=== PATIENT | male | born 1945 | race Caucasian/White ===

== ENCOUNTER 2018-04-30 11:24 | Observation (INO) ==
--- NOTE | 2018-04-30 11:59 | ED ---
HPI General Chief Complaint: Syncope Stated Complaint: Medical Time Seen by Provider: 04/30/18 11:46 Source: EMS Mode of arrival: EMS Limitations: altered mental status History of Present Illness HPI narrative: Patient is a 72-year-old male presenting to the emergency department for evaluation of altered mental status and a syncopal episode. Patient was at [facility] with his caregiver, he was sitting in a chair when he slumped over and was reportedly unresponsive for 3-5 minutes. There was no head injury or fall. EMS was activated and on scene patient aroused spontaneously, he was initially hypotensive for fire rescue but has been normotensive for EMS. Patient has no complaints, H&P is limited due to patient's mentation. He has a history of Alzheimer's dementia. When asked any questions patient responds with "it is none of your [employer] business". Patient has been making homicidal statements. 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 Past medical history is significant for hypertension, BPH. Patient is not on any medications for the Alzheimer's. Patient currently lives alone, but has friends who cook for him and check on him several times a day. MD complaint: loss of consciousness Onset (ago): minute(s) Duration of episode: 3 -: minutes(s) Witnessed: yes - by other (Daughter) Context: at rest Injuries sustained associated with event: none Current symptoms: back to baseline Treatments prior to arrival: none Related Data Home Medications Medication Instructions Recorded Confirmed acetaminophen-codeine 1 tab PO Q6H PRN 04/30/18 04/30/18 [Tylenol-Codeine #3] atenolol 25 mg PO DAILY 04/30/18 05/01/18 ferrous sulfate 04/30/18 gabapentin 100 mg PO DAILY 04/30/18 05/01/18 amlodipine [Norvasc] 2.5 mg PO DAILY 05/01/18 05/01/18 trazodone 05/01/18 05/01/18 Previous Rx's Medication Instructions Recorded aspirin 81 mg PO DAILY #30 tab 05/01/18 atorvastatin 20 mg PO DAILY #30 tab 05/01/18 Allergies Allergy/AdvReac Type Severity Reaction Status Date / Time No Known Allergies Allergy Uncoded 07/01/12 15:36 Review of Systems ROS Unobtainable ROS Unobtainable: unobtainable due to mental condition PMFSH Medical History Medical History Dementia (Acute) Enlarged prostate (Acute) HTN (hypertension) (Acute) Social History Social History Substance History: Unable to Obtain Second Hand Smoke Exposure: No Smoking Status: Never smoker How Often Do You Have a Drink Containing Alcohol: Never Hx Recent Travel: No Recent Travel in [facility] within the Last 8 Weeks: No Recent Out of Country Travel within the Last 8 Weeks: No Immunization History Tetanus Immunization: Unable to Assess Hx Influenza Vaccine This Season: Unable to Assess Exam Narrative Exam Narrative: GENERAL: Well-developed, well-nourished, alert elderly male. Presenting in no acute distress. SKIN: Focused skin assessment warm/dry. HEAD: Atraumatic. Normocephalic. EYES: Pupils equal and round. No scleral icterus. No injection or drainage. ENT: No nasal bleeding or discharge. Mucous membranes pink and moist. NECK: Trachea midline. No JVD. CARDIOVASCULAR: Regular rate and rhythm. No murmur appreciated. RESPIRATORY: No accessory muscle use. Clear to auscultation. Breath sounds equal bilaterally. GASTROINTESTINAL: Abdomen soft, non-tender, nondistended. Hepatic and splenic margins not palpable. MUSCULOSKELETAL: No obvious deformities. No clubbing. No cyanosis. No edema. NEUROLOGICAL: Awake and alert. No obvious cranial nerve deficits. Motor grossly within normal limits. Normal speech. Psych Appearance: grossly normal Mental Status: other Speech and Movement: speech and movement normal Mood: irritable mood Affect: irritable affect Attitude: belligerent Thought Process: illogical Thought Content: homicidality Judgment: poor Course Initial Documented Vital Signs Temperature 97.8 F 04/30/18 11:36 Pulse Rate 75 04/30/18 11:36 Respiratory Rate 18 04/30/18 11:36 Blood Pressure 158/75 H 04/30/18 11:36 Pulse Oximetry 99 04/30/18 11:36 Last Documented Vital Signs Temperature 97.6 F 05/01/18 08:00 Pulse Rate 66 05/01/18 12:00 Respiratory Rate 18 05/01/18 14:26 Blood Pressure 173/84 H 05/01/18 12:00 Pulse Oximetry 98 05/01/18 12:00 Medical Decision Making GERARDO Attestation GERARDO supervised visit: Yes Attestation: I, Dr. Cardoza, have reviewed the advance practice practitioner's documentation and am in agreement, met with the patient face to face, made the diagnosis, and the medical decision making was done by me. *My assessment and Findings: Patient is a 72-year-old male who presents to the emergency department after he was unresponsive in latter day. He denies any prodromal symptoms. Vital signs are stable here by EMS reports he was hypotensive on their arrival on scene. EKG shows normal sinus rhythm. Labs are relatively unremarkable. Patient lives alone and thus does not have reliable care in case an episode were to happen again. He has been admitted to Dr. Alas, hospitalist on-call, for further evaluation and management of his syncope versus seizure. MDM Narrative Medical decision making narrative: Patient is a well-appearing 72-year-old male presenting for evaluation after a witnessed syncopal episode. Patient also appears to be having an exacerbation of his Alzheimer's dementia. Labs and imaging ordered and pending. Patient is extremely irritable, 1 mg of Ativan ordered. Patient's vital signs are stable. Daughter is at bedside. Medical records reviewed, patient has not been to the emergency department since 2011. Labs reviewed, no acute findings. CT scan the brain shows no acute abnormality. Urinalysis is unremarkable. Chest x-ray shows no acute findings. Patient has been resting comfortably. Discussed findings of patient's presentation with my attending physician. Patient will be admitted under observation for syncopal episode as he was hypotensive when initially evaluated by fire rescue. Discussed with Dr. Navarro who accepted admit. Medical Screen Exam Complete: Yes Emergency Medical Condition: Yes Differential Diagnosis Differential Diagnosis: UTI versus metabolic abnormality versus worsening dementia versus CVA versus TIA versus other Medical Records Medical records reviewed: Yes I reviewed the patient's medical records. Lab Data Lab results reviewed: Yes I reviewed the patient's lab results. Result diagrams: 04/30/18 13:12 04/30/18 11:50 Lab Results 04/30/18 04/30/18 04/30/18 Range/Units 11:50 11:50 12:29 WBC (4.0-11.0) th/mm3 RBC (4.50-5.90) mil/mm3 Hgb (13.0-17.0) gm/dL Hct (39.0-51.0) % MCV (80.0-100.0) fL MCH (27.0-34.0) pg MCHC (32.0-36.0) % RDW (11.6-17.2) % Plt Count (150-450) th/mm3 MPV (7.0-11.0) fL Neut % (Auto) (16.0-70.0) % Lymph % (Auto) (9.0-44.0) % [place] % (Auto) (0.0-8.0) % Eos % (Auto) (0.0-4.0) % Baso % (Auto) (0.0-2.0) % Neut # (Auto) (1.8-7.7) th/mm3 Lymph # (Auto) (1.0-4.8) th/mm3 [place] # (Auto) (0.0-0.9) th/mm3 Eos # (Auto) (0.0-0.4) th/mm3 Baso # (Auto) (0.0-0.2) th/mm3 WBC Differential Differential Comment PT (9.8-11.6) sec INR Ratio APTT (24.3-30.1) sec Sodium 136 (136-145) meq/L Potassium 4.4 (3.5-5.1) meq/L Chloride 102 (98-107) meq/L Carbon Dioxide 24.5 (21.0-32.0) meq/L Anion Gap 10 (5-15) meq/L BUN 18 (7-18) mg/dL Creatinine 1.36 H (0.60-1.30) mg/dL Estimated GFR 51 L (>89) mL/min Random Glucose 157 H (74-106) mg/dL Hemoglobin A1c (4.3-6.0) % Calcium 8.5 (8.5-10.1) mg/dL Total Bilirubin 0.7 (0.2-1.0) mg/dL AST 21 (15-37) U/L ALT 18 (12-78) U/L Alkaline Phosphatase 49 (45-117) U/L Total Creatine Kinase 129 (39-308) U/L Troponin I Less than 0.02 L (0.02-0.05) ng/mL Total Protein 6.8 (6.4-8.2) g/dL Albumin 3.4 (3.4-5.0) g/dL TSH 1.250 (0.358-3.740) uIU/mL Urine Color (Yellw/Straw) Urine Clarity (Clear) Urine pH (5.0-8.5) Ur Specific [place] (1.002-1.035) Urine Protein (Neg-Trace) mg/dL Urine Glucose (UA) (Negative) mg/dL Urine Ketones (Negative) mg/dL Urine Occult Blood (Negative) Urine Nitrate (Negative) Urine Bilirubin (Negative) Urine Urobilinogen (Less than 2) mg/dL Ur Leukocyte Esterase (Negative) Urine RBC (0-3) /hpf Urine WBC (0-5) /hpf Ur Squamous Epith Cells (0-5) /hpf Ur Transition Epith Cell (None) /hpf Hyaline Casts (0-3) /lpf Urine Mucus (Occasional) /lpf Micro UA Comment Ur Microscopic Review Urine Culture Comments Urine Opiates Screen Pos H (Neg) Ur Barbiturates Screen Neg (Neg) Ur Amphetamines Screen Neg (Neg) U Benzodiazepines Scrn Pos H (Neg) Urine Cocaine Screen Neg (Neg) U Cannabinoids Screen Neg (Neg) 04/30/18 04/30/18 04/30/18 Range/Units 12:29 13:12 13:12 WBC 9.1 (4.0-11.0) th/mm3 RBC 3.88 L (4.50-5.90) mil/mm3 Hgb 12.3 L (13.0-17.0) gm/dL Hct 37.4 L (39.0-51.0) % MCV 96.4 (80.0-100.0) fL MCH 31.7 (27.0-34.0) pg MCHC 32.9 (32.0-36.0) % RDW 12.9 (11.6-17.2) % Plt Count 221 (150-450) th/mm3 MPV 8.1 (7.0-11.0) fL Neut % (Auto) 90.8 H (16.0-70.0) % Lymph % (Auto) 3.8 L (9.0-44.0) % [place] % (Auto) 5.1 (0.0-8.0) % Eos % (Auto) 0.1 (0.0-4.0) % Baso % (Auto) 0.2 (0.0-2.0) % Neut # (Auto) 8.2 H (1.8-7.7) th/mm3 Lymph # (Auto) 0.3 L (1.0-4.8) th/mm3 [place] # (Auto) 0.5 (0.0-0.9) th/mm3 Eos # (Auto) 0.0 (0.0-0.4) th/mm3 Baso # (Auto) 0.0 (0.0-0.2) th/mm3 WBC Differential . Differential Comment Auto diff final PT 10.9 (9.8-11.6) sec INR 1.1 Ratio APTT 25.4 (24.3-30.1) sec Sodium (136-145) meq/L Potassium (3.5-5.1) meq/L Chloride (98-107) meq/L Carbon Dioxide (21.0-32.0) meq/L Anion Gap (5-15) meq/L BUN (7-18) mg/dL Creatinine (0.60-1.30) mg/dL Estimated GFR (>89) mL/min Random Glucose (74-106) mg/dL Hemoglobin A1c (4.3-6.0) % Calcium (8.5-10.1) mg/dL Total Bilirubin (0.2-1.0) mg/dL AST (15-37) U/L ALT (12-78) U/L Alkaline Phosphatase (45-117) U/L Total Creatine Kinase (39-308) U/L Troponin I (0.02-0.05) ng/mL Total Protein (6.4-8.2) g/dL Albumin (3.4-5.0) g/dL TSH (0.358-3.740) uIU/mL Urine Color Yellow (Yellw/Straw) Urine Clarity Clear (Clear) Urine pH 6.0 (5.0-8.5) Ur Specific [place] 1.009 (1.002-1.035) Urine Protein Negative (Neg-Trace) mg/dL Urine Glucose (UA) Negative (Negative) mg/dL Urine Ketones Negative (Negative) mg/dL Urine Occult Blood Negative (Negative) Urine Nitrate Negative (Negative) Urine Bilirubin Negative (Negative) Urine Urobilinogen Less than 2 (Less than 2) mg/dL Ur Leukocyte Esterase Negative (Negative) Urine RBC Less than 1 (0-3) /hpf Urine WBC 1 (0-5) /hpf Ur Squamous Epith Cells <1 (0-5) /hpf Ur Transition Epith Cell <1 (None) /hpf Hyaline Casts 3 (0-3) /lpf Urine Mucus Few H (Occasional) /lpf Micro UA Comment Cath-culture not ind Ur Microscopic Review Not Reportable Urine Culture Comments Cath-cult not ind Urine Opiates Screen (Neg) Ur Barbiturates Screen (Neg) Ur Amphetamines Screen (Neg) U Benzodiazepines Scrn (Neg) Urine Cocaine Screen (Neg) U Cannabinoids Screen (Neg) 04/30/18 Range/Units 13:12 WBC (4.0-11.0) th/mm3 RBC (4.50-5.90) mil/mm3 Hgb (13.0-17.0) gm/dL Hct (39.0-51.0) % MCV (80.0-100.0) fL MCH (27.0-34.0) pg MCHC (32.0-36.0) % RDW (11.6-17.2) % Plt Count (150-450) th/mm3 MPV (7.0-11.0) fL Neut % (Auto) (16.0-70.0) % Lymph % (Auto) (9.0-44.0) % [place] % (Auto) (0.0-8.0) % Eos % (Auto) (0.0-4.0) % Baso % (Auto) (0.0-2.0) % Neut # (Auto) (1.8-7.7) th/mm3 Lymph # (Auto) (1.0-4.8) th/mm3 [place] # (Auto) (0.0-0.9) th/mm3 Eos # (Auto) (0.0-0.4) th/mm3 Baso # (Auto) (0.0-0.2) th/mm3 WBC Differential Differential Comment PT (9.8-11.6) sec INR Ratio APTT (24.3-30.1) sec Sodium (136-145) meq/L Potassium (3.5-5.1) meq/L Chloride (98-107) meq/L Carbon Dioxide (21.0-32.0) meq/L Anion Gap (5-15) meq/L BUN (7-18) mg/dL Creatinine (0.60-1.30) mg/dL Estimated GFR (>89) mL/min Random Glucose (74-106) mg/dL Hemoglobin A1c 5.2 (4.3-6.0) % Calcium (8.5-10.1) mg/dL Total Bilirubin (0.2-1.0) mg/dL AST (15-37) U/L ALT (12-78) U/L Alkaline Phosphatase (45-117) U/L Total Creatine Kinase (39-308) U/L Troponin I (0.02-0.05) ng/mL Total Protein (6.4-8.2) g/dL Albumin (3.4-5.0) g/dL TSH (0.358-3.740) uIU/mL Urine Color (Yellw/Straw) Urine Clarity (Clear) Urine pH (5.0-8.5) Ur Specific [place] (1.002-1.035) Urine Protein (Neg-Trace) mg/dL Urine Glucose (UA) (Negative) mg/dL Urine Ketones (Negative) mg/dL Urine Occult Blood (Negative) Urine Nitrate (Negative) Urine Bilirubin (Negative) Urine Urobilinogen (Less than 2) mg/dL Ur Leukocyte Esterase (Negative) Urine RBC (0-3) /hpf Urine WBC (0-5) /hpf Ur Squamous Epith Cells (0-5) /hpf Ur Transition Epith Cell (None) /hpf Hyaline Casts (0-3) /lpf Urine Mucus (Occasional) /lpf Micro UA Comment Ur Microscopic Review Urine Culture Comments Urine Opiates Screen (Neg) Ur Barbiturates Screen (Neg) Ur Amphetamines Screen (Neg) U Benzodiazepines Scrn (Neg) Urine Cocaine Screen (Neg) U Cannabinoids Screen (Neg) Imaging Data Radiologist's impression: Carotid Doppler Study 04/30/18 00:00 CONCLUSION: 1. Right Internal Carotid Artery: Findings indicate <50% stenosis. Moderate calcified and noncalcified plaque is identified in the bifurcation. 2. Left Internal Carotid Artery: No significant stenosis; mild atherosclerotic plaque is visualized. 3. Antegrade flow in both vertebral arteries. Chest X-Ray 04/30/18 11:46 CONCLUSION: 1. No significant subdiaphragmatic free air. 2. No acute abnormality or significant interval change. Head CT 04/30/18 11:46 CONCLUSION: 1. Remote right basal ganglial lacunar infarct. 2. Senescent changes with mild to moderate periventricular ischemic white matter demyelination. 3. No acute intracranial abnormality. . Discharge Plan Discharge Disposition Patient Disposition: 30 Still Patient Discharge Condition Condition: Stable Discharge Order Discharge Orders: Discharge Order (Routine); Ordered 05/01/18 Ordered By: Lynne Sanders Discharge Details Anticipated Discharge Date: 05/01/18 Diagnosis: Syncope, Altered mental status Physicians Team ED Provider: Enid Cardoza ED Midlevel Provider: Xena Miguel Primary Care Provider: [facility],Physician 's Attending Provider: Mikki Buitrago Other Providers: Silvestre Harris Status ED Status: Left Department Discharge Information Discharge Date/Time: 04/30/18 16:16
[2018-04-30 13:05] LABS: Alanine Aminotransferase 18 U/L (12-78); Albumin 3.4 g/dL (3.4-5.0); Alkaline Phosphatase 49 U/L (45-117); Anion Gap 10 meq/L (5-15); Aspartate Aminotransferase 21 U/L (15-37); Blood Urea Nitrogen 18 mg/dL (7-18); Calcium 8.5 mg/dL (8.5-10.1); Carbon Dioxide 24.5 meq/L (21.0-32.0); Chloride 102 meq/L (98-107); Creatine Kinase 129 U/L (39-308); Glomerular Filtration Rate 51 mL/min (>89); Glucose,Random 157 mg/dL (74-106); Potassium 4.4 meq/L (3.5-5.1); Sodium 136 meq/L (136-145); Total Protein 6.8 g/dL (6.4-8.2)
--- NOTE | 2018-04-30 13:05 | CT ---
EXAM DATE: 04/30/2018 11:52 AM EDT AGE/SEX: 72 years / Male INDICATIONS: Syncope and confusion. CLINICAL DATA: This is the patient's initial encounter. Patient reports that signs and symptoms have been present for 1 day and indicates a pain score of 0/10. MEDICAL/SURGICAL HISTORY: Hypertension. Dementia. None. RADIATION DOSE: 56.35 CTDI (mGy) [place] [facility] [place]. . TECHNIQUE: CT of the head without contrast. Using automated exposure control and adjustment of the mA and/or kV according to patient size, radiation dose was kept as low as reasonably achievable to ob tain optimal diagnostic quality images. DICOM format image data is available electronically for revi ew and comparison. FINDINGS: Cerebrum: Small hypodensity in the right basal ganglia likely reflecting old lacunar infarct. Modera te diffuse cerebral atrophy. [id number] periventricular white matter hypodensities. The ventric les are normal for degree of atrophy. No evidence of midline shift, mass lesion, hemorrhage or acute infarction. No extraaxial fluid collections are seen. Posterior Fossa: The cerebellum and brainstem are intact. The 4th ventricle is midline. The cerebe llopontine angle is unremarkable. Extracranial: The visualized portion of the orbits is intact. Skull: The calvaria is intact. No evidence of skull fracture. CONCLUSION: 1. Remote right basal ganglial lacunar infarct. 2. Senescent changes with mild to moderate periventricular ischemic white matter demyelination. 3. No acute intracranial abnormality. . Electronically signed by: Ramone Coelho MD 04/30/2018 1:03 PM EDT
--- NOTE | 2018-04-30 13:06 | XR ---
EXAM DATE: 04/30/2018 11:46 AM EDT AGE/SEX: 72 years / Male INDICATIONS: Free air. CLINICAL DATA: This is the patient's initial encounter. Patient reports that signs and symptoms have been present for 1 day and indicates a pain score of Nonresponsive. MEDICAL/SURGICAL HISTORY: . unknown, pt seems confused . unknown COMPARISON: [facility] – [place], 07/01/2012. . FINDINGS: Stable mild diffuse interstitial prominence. The cardiomediastinal contours are unremarkable. [place] structures are intact. No significant subdiaphragmatic free air. CONCLUSION: 1. No significant subdiaphragmatic free air. 2. No acute abnormality or significant interval change. Electronically signed by: Ramone Coelho MD 04/30/2018 1:04 PM EDT
[2018-04-30 13:28] LABS: Bilirubin,Urine Negative (Negative); Clarity,Urine Clear (Clear); Color,Urine Yellow (Yellw/Straw); Glucose,Urine (UA) Negative (Negative); Hyaline Casts,Urine 3 /lpf (0-3); Leukocyte Esterase,Urine Negative (Negative); Mucus,Urine Few /lpf (Occasional); Nitrite,Urine Negative (Negative); Specific Gravity,Urine 1.009 (1.002-1.035); Squamous Epithelial Cell,Urine <1 /hpf (0-5); Transitional Epi Cells,Urine <1 /hpf
[2018-04-30 13:31] LABS: Amphetamine Screen,Urine Neg (Neg); Barbiturate Screen,Urine Neg (Neg); Cannabinoid Screen,Urine Neg (Neg); Cocaine Screen,Urine Neg (Neg)
[2018-04-30 13:36] LABS: Opiate Screen,Urine Pos (Neg)
[2018-04-30 13:39] LABS: Baso % (Auto) 0.2 % (0.0-2.0); Eos % (Auto) 0.1 % (0.0-4.0); Hematocrit 37.4 % (39.0-51.0); Hemoglobin 12.3 gm/dL (13.0-17.0); Lymph # (Auto) 0.3 th/mm3 (1.0-4.8); Lymph % (Auto) 3.8 % (9.0-44.0); Mean Corpuscular HGB Conc 32.9 % (32.0-36.0); Mean Corpuscular Hemoglobin 31.7 pg (27.0-34.0); Mean Corpuscular Volume 96.4 fL (80.0-100.0); Mean Platelet Volume 8.1 fL (7.0-11.0); Mono # (Auto) 0.5 th/mm3 (0.0-0.9); Mono % (Auto) 5.1 % (0.0-8.0); Neut # (Auto) 8.2 th/mm3 (1.8-7.7); Neut % (Auto) 90.8 % (16.0-70.0); Platelet Count 221 th/mm3 (150-450); Red Blood Count 3.88 mil/mm3 (4.50-5.90); Red Cell Distribution Width 12.9 % (11.6-17.2); White Blood Count 9.1 th/mm3 (4.0-11.0)
[2018-04-30 13:48] LABS: Activated Partial Thrombo Time 25.4 sec (24.3-30.1); INR 1.1 Ratio; Prothrombin Time 10.9 sec (9.8-11.6)
[2018-04-30] MEDS ORDERED: Acetaminophen 325 MG Tablet PO PRN (14:44)
[2018-04-30] MEDS ORDERED: Bisacodyl 10 MG Supp RECTAL PRN (14:44)
[2018-04-30] MEDS ORDERED: Sodium Chloride 0.9% 2 ML Flush PRN IV.FLUSH (14:46)
[2018-04-30] MEDS ORDERED: Acetaminophen/Codeine 300/30 MG Tablet PO PRN ×2 (14:47→18:53)
--- NOTE | 2018-04-30 16:17 | US ---
EXAM DATE: 04/30/2018 12:00 AM EDT AGE/SEX: 72 years / Male INDICATIONS: Syncope. CLINICAL DATA: This is the patient's initial encounter. Patient reports that signs and symptoms have been present for 1 day and indicates a pain score of 0/10. MEDICAL/SURGICAL HISTORY: Dementia. Hypertension. Enlarges prostate. None. COMPARISON: No prior exams available for comparison. VELOCITY PARAMETERS: ICA/CCA Ratio: Right 1.3 , Left 0.7 ICA: Right 59 cm/sec, Left 58 cm/sec CCA: Right 45 cm/sec, Left 82 cm/sec ECA: Right 103 cm/sec, Left 113 cm/sec Vertebral: Right 31 cm/sec antegrade, Left 34 cm/sec antegrade FINDINGS: Right Carotid: Moderate calcified and noncalcified arteriosclerotic plaque is visualized.The wavefor ms are within normal limits. Left Carotid: Mild plaque is visualized. The waveforms are within normal limits. Other: None. CONCLUSION: 1. Right Internal Carotid Artery: Findings indicate <50% stenosis. Moderate calcified and noncalcifi ed plaque is identified in the bifurcation. 2. Left Internal Carotid Artery: No significant stenosis; mild atherosclerotic plaque is visualized. 3. Antegrade flow in both vertebral arteries. Electronically signed by: Jose E Ventura MD 04/30/2018 4:16 PM EDT
--- NOTE | 2018-04-30 16:44 | P.HPIM ---
History of Present Illness Service: [facility] Primary Care Physician: [facility] Chief Complaint: SYNCOPE-ALTERED MENTAL STATUS History of Present Illness: Patient is a 72-year-old male who presented to the emergency department today for evaluation of altered mental status and a syncopal episode. Patient was at the [facility] with his caregiver, he was sitting in a chair when he suddenly slumped over was reportedly unresponsive for about 3-5 minutes. There was no head injury or fall. EMS was activated on the scene patient arouse spontaneously, he was noted to be hypotensive initially when fire rescue first arrived.. But then became normal tensive for EMS. Patient denies any complaints. He has a history of Alzheimer's dementia. When asked questions patient responds "it is none of your [employer] business" patient has been making homicidal statements. 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 Past medical history significant for hypertension, and BPH. Patient is currently not on any Alzheimer's occasions. Currently lives alone. Has friends to cook for him and check on him several times a day. Patient was noted to have this questionable loss of consciousness. And is now back to baseline Patient will be placed in observation will admit him for altered mental status and syncope and consult psychiatry Review of Systems All other systems reviewed negative except as stated in HPI, unobtainable due to mental condition, unobtainable due to mental status PMFSH - History History Provided By: Patient - Medical History Medical History: Medical History (Last Updated 04/30/18 @ 16:39 by Patricio Navarro DO) Anxiety Back pain Dementia Enlarged prostate HTN (hypertension) Hyperlipidemia Peripheral vascular disease Spinal injury Surgical history unknown - Family History Family History: Family History (Last Reviewed 04/30/18 @ 16:38 by Patricio Navarro DO) Other Family history unobtainable due to patient's condition - Social History I have reviewed the patient's Social History: Yes - Tobacco History Second Hand Smoke Exposure: No Tobacco Use In Past 30 Days: No Smoking Status: Refused to answer - Alcohol History How Often Do You Have a Drink Containing Alcohol: Unable to Obtain - Substance Use History Substance History: Unable to Obtain - Travel History History of Recent Travel: No Recent Travel in the [facility] Within the Last 8 Weeks: No Recent Travel Out of the Country Within the Last 8 Weeks: No - Immunization History Tetanus Immunization: Unable to Assess Hx Influenza Vaccine This Season: Unable to Assess Medications and Allergies Active Medications: Active Medications Acetaminophen (Tylenol) 650 mg PO Q4H PRN PRN Reason: Temp > 100.4 Acetaminophen/Codeine Phosphate (Tylenol W/Cod #3) 1 tab PO Q6H PRN PRN Reason: Acid Reflux Al Hydroxide/Mg Hydroxide (Milk Of Magnesia Liq) 30 ml PO Q12H PRN PRN Reason: Mild Constipation Amlodipine Besylate (Norvasc) 2.5 mg PO DAILY NICKY Atenolol (Tenormin) 50 mg PO DAILY NICKY Bisacodyl (Dulcolax Supp) 10 mg RECTAL DAILY PRN PRN Reason: SEVERE CONSITIPATION Enoxaparin Sodium (Lovenox Inj) 40 mg SQ Q24H NICKY Ferrous Sulfate (Ferosul) 325 mg PO DAILY NICKY Gabapentin (Neurontin) 100 mg PO DAILY NICKY Sodium Chloride (Ns Inj) 1,000 mls @ 100 mls/hr IV.CONT .Q10H NICKY Lactulose (Lactulose Liq) 30 ml PO DAILY PRN PRN Reason: SEVERE CONSITIPATION Ondansetron HCl (Zofran Inj) 4 mg IV.PUSH Q6H PRN PRN Reason: NAUSEA OR VOMITING Pantoprazole Sodium (Protonix) 40 mg PO DAILY NICKY Senna/Docusate Sodium (Dilia-Colace) 1 tab PO BID NICKY Sennosides (Senokot) 17.2 mg PO Q12H PRN PRN Reason: Moderate Constipation Sodium Chloride (Ns Flush) 2 ml IV.FLUSH BID NICKY Sodium Chloride (Ns Flush) 2 ml IV.FLUSH PRN PRN PRN Reason: FLUSH AFTER USING IV ACCESS Allergies Allergy/AdvReac Type Severity Reaction Status Date / Time No Known Allergies Allergy Uncoded 07/01/12 15:36 Home Medications Medication Instructions Recorded Confirmed Type acetaminophen-codeine 1 tab PO Q6H PRN 04/30/18 04/30/18 History [Tylenol-Codeine #3] amlodipine 2.5 mg PO DAILY 04/30/18 04/30/18 History atenolol 50 mg PO DAILY 04/30/18 04/30/18 History ferrous sulfate 04/30/18 History gabapentin 100 mg PO DAILY 04/30/18 04/30/18 History lisinopril 40 mg PO DAILY 04/30/18 04/30/18 History meloxicam 15 mg PO DAILY 04/30/18 04/30/18 History Exam Vital signs: Vital Signs 04/30/18 11:36 Temperature 97.8 F Pulse Rate 75 Respiratory Rate 18 Blood Pressure 158/75 H Pulse Oximetry 99 Intake & Output 04/29/18 04/30/18 04/30/18 18:59 06:59 18:59 Weight 58.967 kg Narrative: GENERAL: Awake and alert knows he is in the hospital and he did not know which hospital he is in. Did not know what city he does not know what year and does not know president is Trump SKIN: Warm and dry. HEAD: Atraumatic. Normocephalic. EYES: Pupils equal and round. No scleral icterus. No injection or drainage. EOMI glasses ENT: No nasal bleeding or discharge. Mucous membranes pink and moist. NECK: Trachea midline. No JVD. Tongue is midline supple CARDIOVASCULAR: Regular rate and rhythm. S1-S2 no S3 or S4 RESPIRATORY: No accessory muscle use. Clear to auscultation. Breath sounds equal bilaterally. GASTROINTESTINAL: Abdomen soft, non-tender, nondistended. Hepatic and splenic margins not palpable. MUSCULOSKELETAL: Extremities without clubbing, cyanosis, or edema. No obvious deformities. NEUROLOGICAL: Awake and alert. No obvious cranial nerve deficits. Motor grossly within normal limits. Five out of 5 muscle strength in the arms and legs. Normal speech. PSYCHIATRIC: INAppropriate mood and affect; insight and judgment ABnormal. Results - Labs CBC & Chem 7: 04/30/18 13:12 04/30/18 11:50 Labs: Short CBC 04/30/18 Range/Units 13:12 WBC 9.1 (4.0-11.0) th/mm3 Hgb 12.3 L (13.0-17.0) gm/dL Hct 37.4 L (39.0-51.0) % Plt Count 221 (150-450) th/mm3 [facility] 04/30/18 11:50 Sodium 136 Potassium 4.4 Chloride 102 Carbon Dioxide 24.5 BUN 18 Creatinine 1.36 H Calcium 8.5 Cardiac Enzymes 04/30/18 Range/Units 11:50 Total Creatine Kinase 129 (39-308) U/L Troponin I Less than 0.02 L (0.02-0.05) ng/mL Liver Function 04/30/18 Range/Units 11:50 Total Bilirubin 0.7 (0.2-1.0) mg/dL AST 21 (15-37) U/L ALT 18 (12-78) U/L Alkaline Phosphatase 49 (45-117) U/L Albumin 3.4 (3.4-5.0) g/dL Urine 04/30/18 Range/Units 12:29 Urine Color Yellow (Yellw/Straw) Urine Clarity Clear (Clear) Urine pH 6.0 (5.0-8.5) Ur Specific [place] 1.009 (1.002-1.035) Urine Protein Negative (Neg-Trace) mg/dL Urine Glucose (UA) Negative (Negative) mg/dL - Imaging Impressions Carotid Doppler Study 04/30/18 00:00 CONCLUSION: 1. Right Internal Carotid Artery: Findings indicate <50% stenosis. Moderate calcified and noncalcified plaque is identified in the bifurcation. 2. Left Internal Carotid Artery: No significant stenosis; mild atherosclerotic plaque is visualized. 3. Antegrade flow in both vertebral arteries. Chest X-Ray 04/30/18 11:46 CONCLUSION: 1. No significant subdiaphragmatic free air. 2. No acute abnormality or significant interval change. Head CT 04/30/18 11:46 CONCLUSION: 1. Remote right basal ganglial lacunar infarct. 2. Senescent changes with mild to moderate periventricular ischemic white matter demyelination. 3. No acute intracranial abnormality. . Caprini VTE Risk Assessment Caprini VTE Risk Assessment: No/Low Risk (score <= 1) Caprini Risk Assessment Model: Point Value = 1 Point Value = 2 Point Value = 3 Point Value = 5 Age 41-60 Minor surgery BMI > 25 kg/m2 Swollen legs Varicose veins or History of unexplained or recurrent spontaneous Oral contraceptives or hormone replacement Sepsis (< 1 month) Serious lung disease, including pneumonia (< 1 month) Abnormal pulmonary function Acute myocardial infarction Congestive heart failure (< 1 month) History of inflammatory bowel disease Medical patient at bed rest Age 61-74 Arthroscopic surgery Major open surgery (> 45 min) Laparoscopic surgery (> 45 min) Malignancy Confined to bed (> 72 hours) Immobilizing plaster cast Central venous access Age >= 75 History of VTE Family history of VTE Factor V Leiden Prothrombin [id number] Lupus anticoagulant Anticardiolipin antibodies Elevated serum homocysteine Heparin-induced thrombocytopenia Other congenital or acquired thrombophilia Stroke (< 1 month) Elective arthroplasty Hip, pelvis, or leg fracture Acute spinal cord injury (< 1 month) Prophylaxis Regimen: Total Risk Factor Score Risk Level Prophylaxis Regimen 0-1 Low Early ambulation 2 Moderate Order ONE of the following: *Sequential Compression Device (SCD) *Heparin 5000 units SQ BID 3-4 Higher Order ONE of the following medications: *Heparin 5000 units SQ TID *Enoxaparin/Lovenox 40 mg SQ daily (WT < 150 kg, CrCl > 30 mL/min) *Enoxaparin/Lovenox 30 mg SQ daily (WT < 150 kg, CrCl > 10-29 mL/min) *Enoxaparin/Lovenox 30 mg SQ BID (WT < 150 kg, CrCl > 30 mL/min) AND/OR *Sequential Compression Device (SCD) 5 or more Highest Order ONE of the following medications: *Heparin 5000 units SQ TID (Preferred with Epidurals) *Enoxaparin/Lovenox 40 mg SQ daily (WT < 150 kg, CrCl > 30 mL/min) *Enoxaparin/Lovenox 30 mg SQ daily (WT < 150 kg, CrCl > 10-29 mL/min) *Enoxaparin/Lovenox 30 mg SQ BID (WT < 150 kg, CrCl > 30 mL/min) AND *Sequential Compression Device (SCD) Assessment and Plan - Plan Syncopal episodes probably secondary to vasovagal versus sleeping while in nondenominational We will get an echocardiogram, will get a carotid Dopplers, A.m. labs Fasting lipids Alzheimer's dementia/altered mental status will consult psychiatry Per chart review previously had been on Aricept Hypertension by history -Continue on amlodipine 2.5 -Continue on atenolol 50 mg p.o. daily Neuropathy continue on gabapentin 100 mg p.o. daily Renal insufficiency we will hold lisinopril Probable osteoarthritis will hold the meloxicam Chronic back pain chronically on acetaminophen/codeine 1 p.o. every 6 hours A.m. labs Physical therapy to eval and treat Occupational therapy to eval and treat Orthostatics Psychiatry consult Code Status: Full code Discussed Condition With: RN and patient and emergency room physician Discharge Planning: Pending clearance by psychiatry
[2018-04-30] MEDS: Sod Chloride 0.9% Inj 1,000 ML IV.CONT SCH (18:08)
--- NOTE | 2018-04-30 18:13 | ECG ---
Date Performed: 04/30/2018 Time Performed: 13:39:39 PTAGE: 72 years EKG: Sinus rhythm SEPTAL MYOCARDIAL INFARCTION ABNORMAL ECG PREVIOUS TRACING : 07/01/2012 15.40 Since the previous tracing, no significant change noted DOCTOR: Yong Fox Interpretating Date/Time 04/30/2018 18:12:43
[2018-04-30] MEDS ORDERED: Enoxaparin Inj 40 MG/0.4 ML Syringe SQ SCH (18:45)
--- NOTE | 2018-04-30 19:36 | MG ---
cc: Levi Aviles MD [id number] INDICATIONS: Alzheimer's dementia, Ativan, lacunar infarct. Recording shows a 9-10 Hz, 60 microvolt symmetric posterior rhythm. Recording overall is synchronous and symmetric. No hemisphere asymmetries are noted. Photic stimulation was performed without significant posterior driving. Hyperventilation was not performed. The patient had a head twitch and a right foot twitch which did not correlate with any electroencephalographic seizure activity. IMPRESSION: Normal awake electroencephalogram. Some twitching was noted, but that did not correlate with any seizure activity. Levi Aviles MD DJM/ct , 05:46 PM , 05:50 PM
[2018-04-30] MEDS: Sodium Chloride 0.9% 2 ML Flush BID IV.FLUSH SCH (20:36)
[2018-04-30] MEDS: Senna/Docusate Sodium 8.6/50 MG Tablet PO SCH (20:36)
[2018-04-30 22:29] LABS: Hemoglobin A1c 5.2 % (4.3-6.0)
--- NOTE | 2018-05-01 08:02 | P.PN ---
Subjective Interval history: Follow-up on patient with syncopal episode. Patient seen and examined. Patient denies any complaints. He tells me that he has no medical problems. He denies any dizziness, lightheadedness, headache or vision changes. He denies any chest pain or shortness of breath. He denies any numbness/tingling or weakness. Patient is very rude and vulgar making inappropriate racial and sexual remarks. Will not answer orientation questions. Physical Exam Vital signs: Vital Signs 04/30/18 11:36 04/30/18 17:12 04/30/18 20:00 Temperature 97.8 F 98.7 F 98.2 F Pulse Rate 75 60 91 H Respiratory Rate 18 18 16 Blood Pressure 158/75 H 160/75 H 172/84 H Pulse Oximetry 99 97 96 04/30/18 20:20 04/30/18 23:09 05/01/18 00:00 Temperature 98.2 F 98.7 F Pulse Rate 85 66 73 Respiratory Rate 18 17 18 Blood Pressure 173/78 H 190/87 H 138/72 Pulse Oximetry 96 97 97 05/01/18 04:00 Temperature Pulse Rate Respiratory Rate 17 Blood Pressure Pulse Oximetry Intake & Output 04/30/18 05/01/18 05/01/18 18:59 06:59 18:59 Intake Total 0 / 0 Balance 0 / 0 Weight 58.967 kg Intake: IV 0 / 0 NS Inj 1,000 ML @ 100 mls/hr IV 0 / 0 .CONT .Q10H NICKY Rx#:[id number] Other: Date of Last Bowel Movement 04/30/18 Narrative: GENERAL: WDWN elderly male patient, INAD. Awake and alert. Appears comfortable. SKIN: Warm and dry. HEAD: Atraumatic. Normocephalic. EYES: Pupils equal and round. No scleral icterus. No injection or drainage. EOMI glasses ENT: No nasal bleeding or discharge. Mucous membranes pink and moist. NECK: Trachea midline. CARDIOVASCULAR: Regular rate and rhythm. No murmur auscultated. RESPIRATORY: No accessory muscle use. Clear to auscultation. Breath sounds equal bilaterally. GASTROINTESTINAL: Abdomen soft, non-tender, nondistended. +BS. MUSCULOSKELETAL: Extremities without clubbing, cyanosis, or edema. No obvious deformities. NEUROLOGICAL: Awake and alert. No obvious cranial nerve deficits. Motor grossly within normal limits. Able to move all extremities spontaneously. Normal speech. PSYCHIATRIC: Inappropriate mood and affect; insight and judgment abnormal. - Urinary Catheter Management Straight Cath placed during this visit: yes Reason for continuing: Not indwelling catheter Insertion date: 04/30/18 Insertion time: 12:32 Results - Labs CBC & Chem 7: 04/30/18 13:12 04/30/18 11:50 Laboratory Results - last 24 hr 04/30/18 04/30/18 04/30/18 11:50 11:50 12:29 WBC RBC Hgb Hct MCV MCH MCHC RDW Plt Count MPV Neut % (Auto) Lymph % (Auto) [place] % (Auto) Eos % (Auto) Baso % (Auto) Neut # (Auto) Lymph # (Auto) [place] # (Auto) Eos # (Auto) Baso # (Auto) WBC Differential Differential Comment PT INR APTT Sodium 136 Potassium 4.4 Chloride 102 Carbon Dioxide 24.5 Anion Gap 10 BUN 18 Creatinine 1.36 H Estimated GFR 51 L Random Glucose 157 H Hemoglobin A1c Calcium 8.5 Total Bilirubin 0.7 AST 21 ALT 18 Alkaline Phosphatase 49 Total Creatine Kinase 129 Troponin I Less than 0.02 L Total Protein 6.8 Albumin 3.4 TSH 1.250 Urine Color Urine Clarity Urine pH Ur Specific [place] Urine Protein Urine Glucose (UA) Urine Ketones Urine Occult Blood Urine Nitrate Urine Bilirubin Urine Urobilinogen Ur Leukocyte Esterase Urine RBC Urine WBC Ur Squamous Epith Cells Ur Transition Epith Cell Hyaline Casts Urine Mucus Micro UA Comment Ur Microscopic Review Urine Culture Comments Urine Opiates Screen Pos H Ur Barbiturates Screen Neg Ur Amphetamines Screen Neg U Benzodiazepines Scrn Pos H Urine Cocaine Screen Neg U Cannabinoids Screen Neg 04/30/18 04/30/18 04/30/18 12:29 13:12 13:12 WBC 9.1 RBC 3.88 L Hgb 12.3 L Hct 37.4 L MCV 96.4 MCH 31.7 MCHC 32.9 RDW 12.9 Plt Count 221 MPV 8.1 Neut % (Auto) 90.8 H Lymph % (Auto) 3.8 L Wilcox % (Auto) 5.1 Eos % (Auto) 0.1 Baso % (Auto) 0.2 Neut # (Auto) 8.2 H Lymph # (Auto) 0.3 L Wilcox # (Auto) 0.5 Eos # (Auto) 0.0 Baso # (Auto) 0.0 WBC Differential . Differential Comment Auto diff final PT 10.9 INR 1.1 APTT 25.4 Sodium Potassium Chloride Carbon Dioxide Anion Gap BUN Creatinine Estimated GFR Random Glucose Hemoglobin A1c Calcium Total Bilirubin AST ALT Alkaline Phosphatase Total Creatine Kinase Troponin I Total Protein Albumin TSH Urine Color Yellow Urine Clarity Clear Urine pH 6.0 Ur Specific [place] 1.009 Urine Protein Negative Urine Glucose (UA) Negative Urine Ketones Negative Urine Occult Blood Negative Urine Nitrate Negative Urine Bilirubin Negative Urine Urobilinogen Less than 2 Ur Leukocyte Esterase Negative Urine RBC Less than 1 Urine WBC 1 Ur Squamous Epith Cells <1 Ur Transition Epith Cell <1 Hyaline Casts 3 Urine Mucus Few H Micro UA Comment Cath-culture not ind Ur Microscopic Review Not Reportable Urine Culture Comments Cath-cult not ind Urine Opiates Screen Ur Barbiturates Screen Ur Amphetamines Screen U Benzodiazepines Scrn Urine Cocaine Screen U Cannabinoids Screen 04/30/18 13:12 WBC RBC Hgb Hct MCV MCH MCHC RDW Plt Count MPV Neut % (Auto) Lymph % (Auto) [place] % (Auto) Eos % (Auto) Baso % (Auto) Neut # (Auto) Lymph # (Auto) Wilcox # (Auto) Eos # (Auto) Baso # (Auto) WBC Differential Differential Comment PT INR APTT Sodium Potassium Chloride Carbon Dioxide Anion Gap BUN Creatinine Estimated GFR Random Glucose Hemoglobin A1c 5.2 Calcium Total Bilirubin AST ALT Alkaline Phosphatase Total Creatine Kinase Troponin I Total Protein Albumin TSH Urine Color Urine Clarity Urine pH Ur Specific [place] Urine Protein Urine Glucose (UA) Urine Ketones Urine Occult Blood Urine Nitrate Urine Bilirubin Urine Urobilinogen Ur Leukocyte Esterase Urine RBC Urine WBC Ur Squamous Epith Cells Ur Transition Epith Cell Hyaline Casts Urine Mucus Micro UA Comment Ur Microscopic Review Urine Culture Comments Urine Opiates Screen Ur Barbiturates Screen Ur Amphetamines Screen U Benzodiazepines Scrn Urine Cocaine Screen U Cannabinoids Screen - Imaging Impressions Carotid Doppler Study 04/30/18 00:00 CONCLUSION: 1. Right Internal Carotid Artery: Findings indicate <50% stenosis. Moderate calcified and noncalcified plaque is identified in the bifurcation. 2. Left Internal Carotid Artery: No significant stenosis; mild atherosclerotic plaque is visualized. 3. Antegrade flow in both vertebral arteries. Chest X-Ray 04/30/18 11:46 CONCLUSION: 1. No significant subdiaphragmatic free air. 2. No acute abnormality or significant interval change. Head CT 04/30/18 11:46 CONCLUSION: 1. Remote right basal ganglial lacunar infarct. 2. Senescent changes with mild to moderate periventricular ischemic white matter demyelination. 3. No acute intracranial abnormality. . Assessment and Plan - Plan 72-year-old male who presented to the emergency department today for evaluation of altered mental status and a syncopal episode. Syncopal episodes, probably secondary to vasovagal versus sleeping while in alevism no further episodes since admission EKG with no changes from previous Head CT remote right basal ganglial lacunar infarct, senescent changes mild to moderate periventricular ischemic white matter demyelination, no acute abnormality EEG neg UA neg Carotid doppler shows <50% stenosis right carotid artery -unable to complete orthostatics 2/2 patient refusal -MRI ordered, patient refusing -start on ASA and statin daily -continuous cardiac monitoring - refusing telemetry Alzheimer's dementia with behavioral disturbances Homicidal ideation Per chart review previously had been on Aricept -Evaluated by psychiatry, accepted for admission Hypertension by history -Continue on amlodipine at increased dose 5mg daily -Continue on atenolol 50 mg p.o. daily -monitor BP and adjust treatment accordingly Neuropathy -continue on gabapentin 100 mg p.o. daily LUCY on ?CKD Creatinine 1.36 baseline unknown, last Cr in the system was 0.95 2011 UA neg -Patient on Lisinopril 40mg daily at home, continue to hold -avoid nephrotoxins -repeat BMP to monitor trend Probable osteoarthritis -will hold the meloxicam 2/2 renal insufficiency Chronic back pain -chronically on acetaminophen/codeine 1 p.o. every 6 hours, continue DVT prophylaxis -SCD/ELLEN hose Discharge patient to inpatient psychiatry Condition on discharge: stable Heart healthy Diet as tolerated Ad Rianna activity Rx written:Norvasc, Lipitor, ASA Follow-up with primary care physician Code Status: FULL Discussed Condition With: patient, nursing staff, Dr. Buitrago, Dr. Harris
[2018-05-01 08:12] VITALS: TEMP 97.6
[2018-05-01] MEDS: Sod Chloride 0.9% Inj 1,000 ML IV.CONT SCH ×2 (08:16→14:27)
[2018-05-01] MEDS: Senna/Docusate Sodium 8.6/50 MG Tablet PO SCH (08:24)
[2018-05-01] MEDS: Sodium Chloride 0.9% 2 ML Flush BID IV.FLUSH SCH (08:25)
[2018-05-01] MEDS ORDERED: Ferrous Sulfate 325 MG Tablet PO SCH (09:00)
[2018-05-01] MEDS ORDERED: amLODIPine 5 MG Tablet PO SCH (09:00)
[2018-05-01] MEDS ORDERED: Gabapentin 100 MG Capsule PO SCH (09:00)
[2018-05-01] MEDS ORDERED: Atenolol 50 MG Tablet PO SCH (09:00)
[2018-05-01 12:26] VITALS: BP 173/84; PULSE 66; O2SAT 98
[2018-05-01] MEDS ORDERED: Haloperidol Inj 5 MG/ML Ampul IM ONE (14:00)
[2018-05-01] MEDS ORDERED: amLODIPine 5 MG Tablet PO ONE (14:00)
[2018-05-01 14:27] VITALS: RESP 18
--- NOTE | 2018-05-01 14:35 | P.CONPSY ---
Provisional Diagnosis Admission Date: April 30, 2018 14:39 [place] I.: Unspecified psychosis, Alzheimer's dementia [place] II.: Deferred [place] III.: Hypertension, BPH History of Present Illness Service: ER Primary Care Provider: [facility] Chief Complaint: SYNCOPE-ALTERED MENTAL STATUS History of Present Illness: The patient is a 72-year-old man, domiciled alone in [place], he has a caregiver, single, no family, , service connected, with a psychiatric history of dementia, one psychiatric hospitalization in 2012 here in [place], 1 remote suicide attempt, he is noted psychotropics at the moment, medical history of BPH, hypertension, who presents to the emergency department for evaluation of altered mental status and a syncopal episode. Patient was at [facility] with his caregiver, he was sitting in a chair when he slumped over and was reportedly unresponsive for 3-5 minutes. There was no head injury or fall. EMS was activated and on scene patient aroused spontaneously, he was initially hypotensive for fire rescue but has been normotensive for EMS. Patient has no complaints, H&P is limited due to patient' s mentation. He has a history of Alzheimer's dementia. When asked any questions patient responds with "it is none of your [employer] business". Patient has been making homicidal statements. 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 Past medical history is significant for hypertension, BPH. Patient is not on any medications for the Alzheimer's. Patient currently lives alone, but has friends who cook for him and check on him several times a day. Patient has been in observation in the ER with acute kidney injury. His creatinine is 01.36. Consulted to psychiatry due to erratic behavior. Chart was reviewed. The case was widely discussed with primary medical team. On my psychiatric evaluation I find a patient that is walking in the busch, he is very confused, completely disoriented, making several confabulatory statements. He is visibly paranoid. Stated that "I am here because Dr. Tello is an impostor, he has my papers and he has my money". He says that his cryptologic technician technical is already informed "my cryptologic technician technical is already contacting the authorities, I want my doctor back right now". The patient is disoriented in place, he does not know where he is. He says that he is in [place]. Partially oriented in time, he knows it is April 2018. He cannot tell me the reason he is here. He reports feeling okay, denies pain, denies depressive symptoms, he seems to be upset, internally preoccupied. As per nurse in charge the patient has been walking around, talking to himself, verbally hostile, stating that a person which name is Nelson wants to kill him. PPHx: History of dementia, previous psychiatric hospitalization, one hospitalization here in 2011, he is noted psychotropics, PMHx: BPH, hypertension Family Hx: No family psychiatric history Substance Hx: The patient denies the use of illegal drugs or alcohol Social Hx: The patient was born and raised in [place], he losing [place] along, he has a caregiver who is also his power of commonwealth attorney, single, unemployed , , service connected, highest level of education is some college Collateral information from [employer], [phone], was obtained, she is here caregiver also her power of commonwealth attorney. She confirms that the patient is here because he had an episode of syncopal in the discharge. But at the same moment she says that she has been very concerned about the patient increased paranoia and disorganization. She said that she has being [facility] the patient has being more agitated, at times verbally hostile, talking about people following him. She also clarifies that the patient has history of dementia. He has no family support. His family is not in contact with him. 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 Review of Systems All other systems reviewed negative except as stated in HPI Psychiatric: Reports irritability, Reports paranoia PMFSH - History History Provided By: Patient - Medical History Medical History: Medical History (Last Reviewed 05/01/18 @ 13:56 by Tracie Guillory) Anxiety Back pain Dementia Enlarged prostate HTN (hypertension) Hyperlipidemia Peripheral vascular disease Spinal injury Surgical history unknown - Family History Family History: Family History (Last Reviewed 05/01/18 @ 13:56 by Tracie Guillory) Other Family history unobtainable due to patient's condition - Tobacco History Second Hand Smoke Exposure: No Tobacco Use In Past 30 Days: No Smoking Status: Refused to answer - Alcohol History How Often Do You Have a Drink Containing Alcohol: Unable to Obtain - Substance Use History Substance History: Unable to Obtain - Travel History History of Recent Travel: No Recent Travel in the [place] Within the Last 8 Weeks: No Recent Travel Out of the Country Within the Last 8 Weeks: No - Immunization History Tetanus Immunization: Unable to Assess Hx Influenza Vaccine This Season: Unable to Assess Medications and Allergies Active Medications: Active Medications Acetaminophen (Tylenol) 650 mg PO Q4H PRN PRN Reason: Temp > 100.4 Last Admin: 05/01/18 08:24 Dose: 650 mg Acetaminophen/Codeine Phosphate (Tylenol W/Cod #3) 1 tab PO Q6H PRN PRN Reason: FOR PAIN SCALE 1 TYO 10 Al Hydroxide/Mg Hydroxide (Milk Of Magnesia Liq) 30 ml PO Q12H PRN PRN Reason: Mild Constipation Amlodipine Besylate (Norvasc) 2.5 mg PO DAILY [facility] Last Admin: 05/01/18 08:24 Dose: 2.5 mg Aspirin (Ecotrin) 81 mg PO DAILY [facility] Atenolol (Tenormin) 50 mg PO DAILY [facility] Last Admin: 05/01/18 08:23 Dose: 50 mg Atorvastatin [place] (Lipitor) 20 mg PO DAILY [facility] Bisacodyl (Dulcolax Supp) 10 mg RECTAL DAILY PRN PRN Reason: SEVERE CONSITIPATION Enoxaparin Sodium (Lovenox Inj) 40 mg SQ DAILY@1800 [facility] Last Admin: 04/30/18 20:35 Dose: Not Given Ferrous Sulfate (Ferosul) 325 mg PO DAILY [facility] Last Admin: 05/01/18 08:24 Dose: 325 mg Gabapentin (Neurontin) 100 mg PO DAILY [facility] Last Admin: 05/01/18 08:24 Dose: 100 mg Sodium Chloride (Ns Inj) 1,000 mls @ 100 mls/hr IV.CONT .Q10H [facility] Last Admin: 05/01/18 08:16 Dose: Not Given Lactulose (Lactulose Liq) 30 ml PO DAILY PRN PRN Reason: SEVERE CONSITIPATION Miscellaneous (Pill Splitter) 1 each OTHER UNSCH PRN PRN Reason: SEE LABEL COMMENTS Ondansetron HCl (Zofran Inj) 4 mg IV.PUSH Q6H PRN PRN Reason: NAUSEA OR VOMITING Pantoprazole Sodium (Protonix) 40 mg PO DAILY [facility] Last Admin: 05/01/18 08:24 Dose: 40 mg Senna/Docusate Sodium (Dilia-Colace) 1 tab PO BID [facility] Last Admin: 05/01/18 08:24 Dose: 1 tab Sennosides (Senokot) 17.2 mg PO Q12H PRN PRN Reason: Moderate Constipation Sodium Chloride (Ns Flush) 2 ml IV.FLUSH BID [facility] Last Admin: 05/01/18 08:25 Dose: Not Given Sodium Chloride (Ns Flush) 2 ml IV.FLUSH PRN PRN PRN Reason: FLUSH AFTER USING IV ACCESS Allergies Allergy/AdvReac Type Severity Reaction Status Date / Time No Known Allergies Allergy Uncoded 07/01/12 15:36 Home Medications Medication Instructions Recorded Confirmed Type acetaminophen-codeine 1 tab PO Q6H PRN 04/30/18 04/30/18 History [Tylenol-Codeine #3] atenolol 50 mg PO DAILY 04/30/18 04/30/18 History ferrous sulfate 04/30/18 History gabapentin 100 mg PO DAILY 04/30/18 04/30/18 History Exam Vital signs: Vital Signs 04/30/18 17:12 04/30/18 20:00 04/30/18 20:20 Temperature 98.7 F 98.2 F 98.2 F Pulse Rate 60 91 H 85 Respiratory Rate 18 16 18 Blood Pressure 160/75 H 172/84 H 173/78 H Pulse Oximetry 97 96 96 04/30/18 23:09 05/01/18 00:00 05/01/18 04:00 Temperature 98.7 F Pulse Rate 66 73 Respiratory Rate 17 18 17 Blood Pressure 190/87 H 138/72 Pulse Oximetry 97 97 05/01/18 08:00 05/01/18 08:53 05/01/18 12:00 Temperature 97.6 F Pulse Rate 67 66 Respiratory Rate 16 16 Blood Pressure 203/94 H 173/84 H Pulse Oximetry 98 99 98 Intake & Output 04/30/18 05/01/18 05/01/18 18:59 06:59 18:59 Intake Total 0 / 0 Balance 0 / 0 Weight 58.967 kg Intake: IV 0 / 0 NS Inj 1,000 ML @ 100 mls/hr IV 0 / 0 .CONT .Q10H [facility] Rx#:[id number] Other: Date of Last Bowel Movement 04/30/18 04/30/18 Narrative: Patient has some level of psychomotor agitation, but no tremors, no EPS, no gait disturbance, no catatonia, no withdrawal symptoms - Constitutional mild distress - Routine HEENT Exam Head: Present: normocephalic, atraumatic Eye: Present: EOMI Mental Status Examination Appearance: Appropriate Consciousness: Alert Orientation: Person, Date/Time Motor Activity: Normal gait Speech: Unremarkable Language: Adequate Fund of Knowledge: Adequate Attention and Concentration: Adequate Memory: Impaired Mood: Angry Affect: Irritable Thought Process & Associations: Loose associations, Disorganized Thought Content: Appropriate, Bizarre thinking Hallucination Type: None Delusion Type: Bizarre, Paranoid Suicidal Ideation: No Suicidal Plan: No Suicidal Intention: No Homicidal Ideation: No Homicidal Plan: No Homicidal Intention: No Insight: Adequate Judgment: Adequate Assessment and Plan - Plan Plan: Estimated LOS: [] days Justification for Continued Inpatient Stay: On psychiatric evaluation today I find a patient that is poorly cooperative, irritable, hyperactive, requesting to leave the hospital. The patient is disorganized, very paranoid, unable to provide much information for the psychiatric assessment at this moment. He is oriented in person, disoriented in time, just partially oriented in place, he does have history of dementia, with previous psychiatric hospitalizations, previous suicide attempt, but he is not in psychotropic at the moment. I have spoken with his caregiver, who states that she has been very preoccupied with patient paranoia and increased aggressive behavior. Given his level of psychosis the patient is a danger to self and others, he will be admitted in psychiatry for stabilization and safety. I am starting Seroquel 25 mg twice daily. I have discussed this plan and treatment with caregiver and she agrees with it. Transfer patient to psychiatry once medically stable. Dx : Unspecified psychosis F 27 Discharge Planning: Admitted in psychiatry.
--- NOTE | 2018-05-01 17:23 | ECHRPT ---
Indication: CVA/TIA CONCLUSIONS The left ventricular systolic function is normal with an estimated ejection fraction in the range of 60-65%. Normal left ventricular size. Wall thickness is normal. No regional wall motion abnormalities are present. Mild thickening of the mitral valve leaflets. Trace mitral valve regurgitation. Aortic valve sclerosis is present. There is trace tricuspid valve regurgitation. The estimated pulmonary arterial pressure is 36 mmHg. BP: / HR: Rhythm: Sinus MEASUREMENTS (Male / Female) Normal Values Technical Quality:Fair 2D ECHO LV Diastolic Diameter PLAX 4.2 cm 4.2 - 5.9 / 3.9 - 5.3 cm LV Systolic Diameter PLAX 2.9 cm IVS Diastolic Thickness 1.0 cm 0.6 - 1.0 / 0.6 - 0.9 cm LVPW Diastolic Thickness 1.0 cm 0.6 - 1.0 / 0.6 - 0.9 cm LV Relative Wall Thickness 0.5 RV Internal Dim ED PLAX 2.9 cm LVOT Diameter 2.0 cm LV Ejection Fraction MOD 4C 67.0 % LV Ejection Fraction 4C AL 69.8 % M-MODE Aortic Root Diameter MM 2.5 cm LA Systolic Diameter MM 3.3 cm LA Ao Ratio MM 1.3 AV Cusp Separation MM 1.7 cm DOPPLER AV Peak Velocity 176.0 cm/s AV Peak Gradient 12.4 mmHg MV Area PHT 4.3 cm Mitral E Point Velocity 99.2 cm/s Mitral A Point Velocity 99.2 cm/s Mitral E to A Ratio 1.0 LV E' Lateral Velocity 8.9 cm/s Mitral E to LV E' Lateral Ratio 11.2 LV E' Septal Velocity 7.2 cm/s Mitral E to LV E' Septal Ratio 13.8 TR Peak Velocity 255.0 cm/s TR Peak Gradient 26.0 mmHg Right Atrial Pressure 10.0 mmHg Pulmonary Artery Systolic Pressu 36.0 mmHg Right Ventricular Systolic Press 36.0 mmHg PV Peak Velocity 105.0 cm/s PV Peak Gradient 4.4 mmHg FINDINGS LEFT VENTRICLE The left ventricular systolic function is normal with an estimated ejection fraction in the range of 60-65%. Normal left ventricular size. Wall thickness is normal. No regional wall motion abnormalities are present. RIGHT VENTRICLE Normal right ventricular size and systolic function. LEFT ATRIUM The left atrial size is normal. RIGHT ATRIUM The right atrial size is normal. ATRIAL SEPTUM Normal atrial septal thickness without atrial level shunting by limited color doppler interrogation. AORTA The aortic root and proximal ascending aorta are normal in size on limited imaging. MITRAL VALVE Mild thickening of the mitral valve leaflets. Trace mitral valve regurgitation. AORTIC VALVE Trileaflet aortic valve. Aortic valve sclerosis is present. TRICUSPID VALVE Structurally normal tricuspid valve. There is trace tricuspid valve regurgitation. The estimated pulmonary arterial pressure is 36 mmHg. PULMONARY VALVE No pulmonary valve regurgitation or stenosis. VESSELS The inferior vena cava is normal in size. PERICARDIUM No pericardial effusion. Yong Fox MD, FACC (Electronically Signed) Final Date:01 May 2018 17:22
--- NOTE | 2018-05-01 22:37 | ECG ---
Date Performed: 04/30/2018 Time Performed: 20:45:16 PTAGE: 72 years EKG: Sinus rhythm ANTEROSEPTAL MYOCARDIAL INFARCTION ABNORMAL ECG PREVIOUS TRACING : 04/30/2018 13.39 Since the previous tracing, no significant change noted DOCTOR: Yong Fox Interpretating Date/Time 05/01/2018 22:36:32
[2018-05-02] MEDS ORDERED: QUEtiapine 25 MG Tablet PO ONE (19:15)
[2018-05-02] MEDS ORDERED: QUEtiapine 25 MG Tablet PO SCH (21:00)
== END 2018-05-01 15:16 ==
LOC: NEDA 11:24 → NEPC 11:24 → NEPGCP 16:16 → NEDA 16:16
PROVIDERS: ADMIT Family Medicine; ATTEND Family Medicine
DX: G30.9 Alzheimer's disease, unspecified; Z79.899 Other long term (current) drug therapy; N18.9 Chronic kidney disease, unspecified; E78.5 Hyperlipidemia, unspecified; R55 Syncope and collapse; Z79.82 Long term (current) use of aspirin; G89.29 Other chronic pain; G62.9 Polyneuropathy, unspecified; F02.81 Dementia in other diseases classified elsewhere, unspecified severity, with behavioral disturbance; Z91.5 Personal history of self-harm; I73.9 Peripheral vascular disease, unspecified; M54.9 Dorsalgia, unspecified; R45.850 Homicidal ideations; I12.9 Hypertensive chronic kidney disease with stage 1 through stage 4 chronic kidney disease, or unspecified chronic kidney disease; N17.9 Acute kidney failure, unspecified

== ENCOUNTER 2018-05-01 15:12 | Inpatient (IN) ==
[2018-05-01] MEDS ORDERED: Haloperidol Inj 5 MG/ML Ampul IM ONE (17:15)
--- NOTE | 2018-05-02 07:16 | P.HPPSY ---
Provisional Diagnosis Admission Date: May 01, 2018 15:17 Taylor I.: Unspecified psychosis, dementia with behavioral disturbances Competence Certification of Person's Competence To Provide Express and Informed Consent I have personally examined Jairo Atkins, a person being served at [facility] on, May 02, 2018 0709. Express and informed consent means consent voluntarily given in writing, by a competent person, after sufficient explanation and disclosure of the subject matter involved to enable the person to make a knowing and willful decision without any element of force, fraud, deceit, duress, or other form of constraint or coercion. This person is 18 years of age or older, is not now known to be incompetent to consent to treatment with a guardian advocate, and does not have a health care surrogate or proxy currently making medical treatment decisions. I have found this person to be one of the following: [] Competent to provide express and informed consent, as defined above, for voluntary admission to this facility and is competent to provide express and informed consent for treatment. He/she has the consistent capacity to make well reasoned, willful, and knowing decisions concerning his or her medical or mental health treatment. The person fully and consistently understands the purpose of the admission for examination/placement and is fully capable of personally exercising all rights assured under [place] [x] Incompetent to provide express and informed consent to voluntary admission, and this is incompetent to provide express and informed consent to treatment. The person must be transferred to involuntary status and a petition for a guardian advocate filed with the Circuit Court. [] Refusing to provide express and informed consent to voluntary admission but is competent to provide express and informed consent for treatment. The person must be discharged or transferred to involuntary status. Form shall be completed within 24 hours of a person's arrival at the receiving facility and filed in the clinical record of each person: 1. Admitted on a voluntary basis 2. Permitted to provide express and informed consent to his/her own treatment 3. Allowed to transfer from involuntary to voluntary status 4. Prior to permitting a person to consent to his or her own treatment after having been previously found incompetent to consent to treatment. History of Present Illness Capacity: Lacks capacity History of Present Illness: Late entry, patient seen May 01, 2018 at 08:30 AM The patient is a 72-year-old man, domiciled alone in [place], he has a caregiver, single, no family, , service connected, with a psychiatric history of dementia, one psychiatric hospitalization in 2012 here in [place], 1 remote suicide attempt, he is noted psychotropics at the moment, medical history of BPH, hypertension, who presents to the emergency department for evaluation of altered mental status and a syncopal episode. Patient was at [facility] with his caregiver, he was sitting in a chair when he slumped over and was reportedly unresponsive for 3-5 minutes. There was no head injury or fall. EMS was activated and on scene patient aroused spontaneously, he was initially hypotensive for fire rescue but has been normotensive for EMS. Patient has no complaints, H&P is limited due to patient' s mentation. He has a history of Alzheimer's dementia. When asked any questions patient responds with "it is none of your [employer] business". Patient has been making homicidal statements. 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 Past medical history is significant for hypertension, BPH. Patient is not on any medications for the Alzheimer's. Patient currently lives alone, but has friends who cook for him and check on him several times a day. Patient has been in observation in the ER with acute kidney injury. His creatinine is 01.36. Consulted to psychiatry due to erratic behavior. Chart was reviewed. The case was widely discussed with primary medical team. On my psychiatric evaluation I find a patient that is walking in the busch, he is very confused, completely disoriented, making several confabulatory statements. He is visibly paranoid. Stated that "I am here because Dr. Tello is an impostor, he has my papers and he has my money". He says that his cinema operator is already informed "my cinema operator is already contacting the authorities, I want my doctor back right now". The patient is disoriented in place, he does not know where he is. He says that he is in faith. Partially oriented in time, he knows it is April 2018. He cannot tell me the reason he is here. He reports feeling okay, denies pain, denies depressive symptoms, he seems to be upset, internally preoccupied. As per nurse in charge the patient has been walking around, talking to himself, verbally hostile, stating that a person which name is Nelson wants to kill him. PPHx: History of dementia, previous psychiatric hospitalization, one hospitalization here in 2011, he is noted psychotropics, PMHx: BPH, hypertension Family Hx: No family psychiatric history Substance Hx: The patient denies the use of illegal drugs or alcohol Social Hx: The patient was born and raised in [place], he losing [place] along, he has a caregiver who is also his power of trust and estates attorney, single, unemployed , , service connected, highest level of education is some college Collateral information from [employer], [phone], was obtained, she is here caregiver also her power of trust and estates attorney. She confirms that the patient is here because he had an episode of syncopal in the discharge. But at the same moment she says that she has been very concerned about the patient increased paranoia and disorganization. She said that she has being [facility] the patient has being more agitated, at times verbally hostile, talking about people following him. She also clarifies that the patient has history of dementia. He has no family support. His family is not in contact with him. 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 - Inpatient Certification I certify that the inpatient services were ordered in accordance with Medicare regulations governing the order. This includes certification that hospital inpatient services are reasonable and necessary and in the case of services not specified as inpatient-only under 42 CFR 419.22(n), that they are appropriately provided as inpatient services in accordance to with the 2-midnight benchmark under 43 CFR 412.3(e) I certify that inpatient psychiatric hospital services are medically necessary. Evaluation and treatment and/or diagnostic testing are expected to improve the patient's condition. The patient needs on a daily basis, active treatment furnished directly by or requiring the supervision of inpatient psychiatric facility personnel. Review of Systems All other systems reviewed negative except as stated in HPI Psychiatric: Reports anxiety, Reports irritability, Reports memory loss, Reports mood swings, Reports paranoia, Reports sensing things others do not sense PMFSH - History History Provided By: Patient - Medical History Medical History: Medical History (Last Reviewed 05/01/18 @ 13:56 by Tracie Guillory) Anxiety Back pain Dementia Enlarged prostate HTN (hypertension) Hyperlipidemia Peripheral vascular disease Spinal injury Surgical history unknown - Family History Family History: Family History (Last Reviewed 05/01/18 @ 13:56 by Tracie Guillory) Other Family history unobtainable due to patient's condition - Tobacco History Second Hand Smoke Exposure: No Smoking Status: Never smoker - Alcohol History How Often Do You Have a Drink Containing Alcohol: Never - Substance Use History Substance History: Unable to Obtain - Travel History History of Recent Travel: No Recent Travel in the USA Within the Last 8 Weeks: No Recent Travel Out of the Country Within the Last 8 Weeks: No - Immunization History Tetanus Immunization: Unable to Assess Hx Influenza Vaccine This Season: No Medications and Allergies Allergies Allergy/AdvReac Type Severity Reaction Status Date / Time No Known Allergies Allergy Uncoded 07/01/12 15:36 Home Medications Medication Instructions Recorded Confirmed Type acetaminophen-codeine 1 tab PO Q6H PRN 04/30/18 04/30/18 History [Tylenol-Codeine #3] atenolol 25 mg PO DAILY 04/30/18 05/01/18 History ferrous sulfate 04/30/18 History gabapentin 100 mg PO DAILY 04/30/18 05/01/18 History amlodipine [Norvasc] 2.5 mg PO DAILY 05/01/18 05/01/18 History trazodone 05/01/18 05/01/18 History Results - Labs Labs: Acetaminophen (Tylenol) 650 mg PO Q4H PRN PRN Reason: Temp > 100.4 Last Admin: 05/01/18 08:24 Dose: 650 mg Acetaminophen/Codeine Phosphate (Tylenol W/Cod #3) 1 tab PO Q6H PRN PRN Reason: FOR PAIN SCALE 1 TYO 10 Al Hydroxide/Mg Hydroxide (Milk Of Magnjairo Liq) 30 ml PO Q12H PRN PRN Reason: Mild Constipation Amlodipine Besylate (Norvasc) 2.5 mg PO DAILY [facility] Last Admin: 05/01/18 08:24 Dose: 2.5 mg Aspirin (Ecotrin) 81 mg PO DAILY [facility] Atenolol (Tenormin) 50 mg PO DAILY [facility] Last Admin: 05/01/18 08:23 Dose: 50 mg Atorvastatin Calcium (Lipitor) 20 mg PO DAILY [facility] Bisacodyl (Dulcolax Supp) 10 mg RECTAL DAILY PRN PRN Reason: SEVERE CONSITIPATION Enoxaparin Sodium (Lovenox Inj) 40 mg SQ DAILY@1800 [facility] Last Admin: 04/30/18 20:35 Dose: Not Given Ferrous Sulfate (Ferosul) 325 mg PO DAILY [facility] Last Admin: 05/01/18 08:24 Dose: 325 mg Gabapentin (Neurontin) 100 mg PO DAILY [facility] Last Admin: 05/01/18 08:24 Dose: 100 mg Sodium Chloride (Ns Inj) 1,000 mls @ 100 mls/hr IV.CONT .Q10H [facility] Last Admin: 05/01/18 08:16 Dose: Not Given Lactulose (Lactulose Liq) 30 ml PO DAILY PRN PRN Reason: SEVERE CONSITIPATION Miscellaneous (Pill Splitter) 1 each OTHER UNSCH PRN PRN Reason: SEE LABEL COMMENTS Ondansetron HCl (Zofran Inj) 4 mg IV.PUSH Q6H PRN PRN Reason: NAUSEA OR VOMITING Pantoprazole Sodium (Protonix) 40 mg PO DAILY [facility] Last Admin: 05/01/18 08:24 Dose: 40 mg Senna/Docusate Sodium (Dilia-Colace) 1 tab PO BID [facility] Last Admin: 05/01/18 08:24 Dose: 1 tab Sennosides (Senokot) 17.2 mg PO Q12H PRN PRN Reason: Moderate Constipation Sodium Chloride (Ns Flush) 2 ml IV.FLUSH BID [facility] Last Admin: 05/01/18 08:25 Dose: Not Given Sodium Chloride (Ns Flush) 2 ml IV.FLUSH PRN PRN PRN Reason: FLUSH AFTER USING IV ACCESS Allergies Allergy/AdvReac Type Severity Reaction Status Date / Time No Known Allergies Allergy Uncoded 07/01/12 15:36 Home Medications Medication Instructions Recorded Confirmed Type acetaminophen-codeine 1 tab PO Q6H PRN 04/30/18 04/30/18 History [Tylenol-Codeine #3] atenolol 50 mg PO DAILY 04/30/18 04/30/18 History ferrous sulfate 04/30/18 History gabapentin 100 mg PO DAILY 04/30/18 04/30/18 History Exam Vital signs: Vital Signs 04/30/18 17:12 04/30/18 20:00 04/30/18 20:20 Temperature 98.7 F 98.2 F 98.2 F Pulse Rate 60 91 H 85 Respiratory Rate 18 16 18 Blood Pressure 160/75 H 172/84 H 173/78 H Pulse Oximetry 97 96 96 04/30/18 23:09 05/01/18 00:00 05/01/18 04:00 Temperature 98.7 F Pulse Rate 66 73 Respiratory Rate 17 18 17 Blood Pressure 190/87 H 138/72 Pulse Oximetry 97 97 05/01/18 08:00 05/01/18 08:53 05/01/18 12:00 Temperature 97.6 F Pulse Rate 67 66 Respiratory Rate 16 16 Blood Pressure 203/94 H 173/84 H Pulse Oximetry 98 99 98 Intake & Output 04/30/18 05/01/18 05/01/18 18:59 06:59 18:59 Intake Total 0 / 0 Balance 0 / 0 Weight 58.967 kg Intake: IV 0 / 0 NS Inj 1,000 ML @ 100 mls/hr IV 0 / 0 .CONT .Q10H [facility] Rx#:[id number] Other: Date of Last Bowel Movement 04/30/18 04/30/18 Exam Vital signs: Vital Signs 05/01/18 18:24 Temperature 97.6 F Pulse Rate 60 Respiratory Rate 16 Blood Pressure 160/80 H Pulse Oximetry 95 Intake & Output 05/01/18 05/02/18 05/02/18 18:59 06:59 18:59 Weight 58.967 kg Other: Weight On Admission 58.967 kg Narrative: No tremors, no EPS, no psychomotor agitation or retardation, no gait disturbance - Constitutional moderate distress - Routine HEENT Exam Head: Present: normocephalic, atraumatic Eye: Present: EOMI, PERRL ENT: Present: mucous membranes moist Mental Status Examination Appearance: Appropriate Consciousness: Alert Orientation: Person Motor Activity: Normal gait Speech: Unremarkable Language: Adequate Fund of Knowledge: Poor Attention and Concentration: Inadequate Memory: Impaired Mood: Angry, Oppositional Affect: Appropriate, Irritable Thought Process & Associations: Loose associations Thought Content: Thought blocking Hallucination Type: None Delusion Type: Bizarre, Paranoid Suicidal Ideation: No Suicidal Plan: No Suicidal Intention: No Homicidal Ideation: No Homicidal Plan: No Homicidal Intention: No Insight: Poor Judgment: Poor Assessment and Plan - Assessment (1) Unspecified psychosis Code(s): F29 - Unspecified psychosis not due to a substance or known physiological condition Status: Acute (2) Unspecified psychosis Code(s): F29 - Unspecified psychosis not due to a substance or known physiological condition Status: Acute - Plan Plan: On psychiatric evaluation today I find a patient that is poorly cooperative, irritable, hyperactive, requesting to leave the hospital. The patient is disorganized, very paranoid, unable to provide much information for the psychiatric assessment at this moment. He is oriented in person, disoriented in time, just partially oriented in place, he does have history of dementia, with previous psychiatric hospitalizations, previous suicide attempt, but he is not in psychotropic at the moment. I have spoken with his caregiver, who states that she has been very preoccupied with patient paranoia and increased aggressive behavior. Given his level of psychosis the patient is a danger to self and others, he will be admitted in psychiatry for stabilization and safety. I am starting Seroquel 25 mg twice daily. I have discussed this plan and treatment with caregiver and she agrees with it. horticultural worker intervention for psychosocial assessment, individual and group therapies, to coordinate safe discharge. Dx : Unspecified psychosis F 29 Justification for Continued Inpatient Stay: Continue admission for stabilization.
[2018-05-02] MEDS: Gabapentin 100 MG Capsule PO SCH (20:59)
[2018-05-02] MEDS: amLODIPine 5 MG Tablet PO SCH (20:59)
[2018-05-02] MEDS: Atenolol 50 MG Tablet PO SCH (21:00)
--- NOTE | 2018-05-02 21:08 | P.PNPSY ---
Subjective Remarks: Patient seen for follow, chart reviewed. Discussion nursing staff reported that patient alert and oriented only to person, noted to be confused and irritable. Patient was found lying hospital bed noted to be irritable but engaging in interview superficially. Patient also noted to be paranoid. Patient states that he is at his home, unable to provide the date and noted to be irritable and short with his answers when asked questions which she does not know the answer to. Patient states "it is none of your business" throughout interview. Patient has been reporting having had homicidal ideation of a "jairon who used to look after my car" which he identified as Norbert Perez. 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 Collateral information obtained via telephone with patient's caregiver/power of attorney at law, states that the patient was referring to her significant other who had been chlorine cell tender as well for some time which patient is having paranoid and homicidal ideation toward. Consent was obtained via telephone and agreed for medication recommendations. Review of Systems All other systems reviewed negative except as stated in HPI Mental Status Examination Appearance: Appropriate Consciousness: Alert Orientation: Person Motor Activity: Normal gait Speech: Unremarkable Language: Adequate Fund of Knowledge: Poor Attention and Concentration: Inadequate Memory: Impaired Mood: Angry, Oppositional Affect: Appropriate, Irritable Thought Process & Associations: Loose associations Thought Content: Preoccupations, Delusional Hallucination Type: None Delusion Type: Bizarre, Paranoid Suicidal Ideation: No Suicidal Plan: No Suicidal Intention: No Homicidal Ideation: Yes Homicidal Plan: No Homicidal Intention: No Insight: Poor Judgment: Poor Assessment and Plan - Assessment (1) Unspecified psychosis Code(s): F29 - Unspecified psychosis not due to a substance or known physiological condition Status: Acute (2) Unspecified psychosis Code(s): F29 - Unspecified psychosis not due to a substance or known physiological condition Status: Acute - Plan Plan: Patient at this time continues with confusion, irritability, bizarre and paranoid delusions along with homicidal ideation. Will start quetiapine 12.5mg now, and follow with 25mg PO BID with upward titration for psychosis and mood stabilization. Continue to monitor mood and behavior. Petition for involuntary admission started, request second opinion. Patient's caregiver/ power of attorney at law will serve as patient's healthcare surrogate and guardian advocate. Discharge planning in progress. Justification for Continued Inpatient Stay: At risk for further decompensation at lower level of care.
[2018-05-02] MEDS ORDERED: LORazepam 0.5 MG Tablet PO PRN (21:11)
[2018-05-02] MEDS: QUEtiapine 25 MG Tablet PO SCH (22:30)
[2018-05-03] MEDS: Gabapentin 100 MG Capsule PO SCH (09:39)
[2018-05-03] MEDS: Atenolol 50 MG Tablet PO SCH (09:40)
[2018-05-03] MEDS: amLODIPine 5 MG Tablet PO SCH (09:40)
[2018-05-03] MEDS: QUEtiapine 25 MG Tablet PO SCH ×2 (09:40→21:13)
--- NOTE | 2018-05-03 13:22 | P.PNPSY ---
Subjective Remarks: This is a request for second opinion. Admission note was reviewed and I agree with the history. Patient was seen and case was discussed with nursing. Patient is alert and oriented x2. He is irritable and angry and not cooperative with the interview. 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 Per nursing , patient is very oppositional and is refusing his medications or food. Supportive therapy was attempted with the patient that he was not having it. Patient is nonspecific homicidal ideation towards "27 police at his house." He has no thoughts or intent of hurting anybody here on the unit Mental Status Examination Appearance: Appropriate Consciousness: Alert Orientation: Person, Place Motor Activity: Normal gait Speech: Unremarkable Language: Adequate Fund of Knowledge: Poor Attention and Concentration: Inadequate Memory: Impaired Mood: Angry, Oppositional Affect: Appropriate, Irritable Thought Process & Associations: Loose associations Thought Content: Preoccupations, Delusional Hallucination Type: None Delusion Type: Bizarre, Paranoid Suicidal Ideation: No Suicidal Plan: No Suicidal Intention: No Homicidal Ideation: Yes Homicidal Plan: No Homicidal Intention: No Insight: Poor Judgment: Poor Assessment and Plan - Assessment (1) Unspecified psychosis Code(s): F29 - Unspecified psychosis not due to a substance or known physiological condition Status: Acute (2) Unspecified psychosis Code(s): F29 - Unspecified psychosis not due to a substance or known physiological condition Status: Acute - Plan Plan: I agree with the first opinion to continue petition. Criteria include acute psychosis Justification for Continued Inpatient Stay: Patient would decompensate in a less restrictive setting
--- NOTE | 2018-05-04 08:53 | P.PNPSY ---
Subjective Remarks: Record reviewed and discussed with nursing staff. Patient is in his room and will not come out for meals. Met with patient with IVRGINIA Garcia. Patient told nurse that he killed someone yesterday and his is upset and cannot sleep. He refused meals yesterday, but today ate all of his breakfast. He is confused and is asking about his friends and family visiting. 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 Will continue to encourage him to take his medications and will review medication list to see if they may need to be given IM. Review of Systems All other systems reviewed negative except as stated in HPI Mental Status Examination Appearance: Appropriate Consciousness: Alert Orientation: Person, Place Motor Activity: Normal gait Speech: Unremarkable Language: Adequate Fund of Knowledge: Poor Attention and Concentration: Inadequate Memory: Impaired Mood: Angry, Oppositional Affect: Appropriate, Irritable Thought Process & Associations: Loose associations Thought Content: Preoccupations, Delusional Hallucination Type: None Delusion Type: Bizarre, Paranoid Suicidal Ideation: No Suicidal Plan: No Suicidal Intention: No Homicidal Ideation: Yes Homicidal Plan: No Homicidal Intention: No Insight: Poor Judgment: Poor Assessment and Plan - Assessment (1) Unspecified psychosis Code(s): F29 - Unspecified psychosis not due to a substance or known physiological condition Status: Acute - Plan Plan: Continue current treatment plan. Will met with psychiatrist on Saturday. Justification for Continued Inpatient Stay: Moving patient to a less restrictive environment may result in his decompensation.
[2018-05-04] MEDS: amLODIPine 5 MG Tablet PO SCH ×2 (11:46→17:58)
[2018-05-04] MEDS: Gabapentin 100 MG Capsule PO SCH (11:46)
[2018-05-04] MEDS: Atenolol 50 MG Tablet PO SCH (11:47)
[2018-05-04] MEDS: QUEtiapine 25 MG Tablet PO SCH ×2 (11:47→20:16)
[2018-05-04] MEDS ORDERED: Haloperidol Inj 5 MG/ML Ampul IM ONE (13:00)
[2018-05-05] MEDS: Atenolol 50 MG Tablet PO SCH (08:56)
[2018-05-05] MEDS: amLODIPine 5 MG Tablet PO SCH (08:56)
[2018-05-05] MEDS: QUEtiapine 25 MG Tablet PO SCH ×2 (08:56→23:38)
[2018-05-05] MEDS: Gabapentin 100 MG Capsule PO SCH (08:56)
--- NOTE | 2018-05-05 12:59 | P.PNPSY ---
Subjective Remarks: Reviewed electronic medical records and discussed case with staff. Follow-up was conducted in the patient's room with VIRGINIA Santos present. Patient states that he feels better today after getting "good night sleep". States that his appetite's been good and he enjoys the food. 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 Remains confused. When asked his location he stated, "right here". And when asked the date he reported "I do not really know". He does appear to be in a better mood today. Mental Status Examination Appearance: Appropriate Consciousness: Alert Orientation: Person, Place Motor Activity: Normal gait Speech: Unremarkable Language: Adequate Fund of Knowledge: Poor Attention and Concentration: Inadequate Memory: Impaired Mood: Angry, Oppositional Affect: Appropriate, Irritable Thought Process & Associations: Loose associations Thought Content: Preoccupations, Delusional Hallucination Type: None Delusion Type: Bizarre, Paranoid Suicidal Ideation: No Suicidal Plan: No Suicidal Intention: No Homicidal Ideation: Yes Homicidal Plan: No Homicidal Intention: No Insight: Poor Judgment: Poor Assessment and Plan - Assessment (1) Unspecified psychosis Code(s): F29 - Unspecified psychosis not due to a substance or known physiological condition Status: Acute - Plan Plan: Patient will be reevaluated tomorrow by the attending psychiatrist. Continue with current treatment plan. Justification for Continued Inpatient Stay: Moving this patient to a less restrictive environment would likely result in decompensation.
--- NOTE | 2018-05-05 15:18 | P.CON ---
History of Present Illness Service: [facility] Consult date: 05/05/18 Requesting Physician: Fernando Ryan Reason for Consult: HTN, tachycardia Primary Care Provider: UNKNOWN Chief Complaint: "someone here is giving illegal drugs" History of Present Illness: Patient is a 72-year-old male with past medical history of HTN, dementia, anxiety, BPH, HLD, PVD who initially came into the hospital for evaluation of altered mental status and syncopal episode. He is now admitted to inpatient psychiatry and for further evaluation. Consulted for assistance with medical management. Patient seen and examined today. Reports he is okay. Usually answers with murmur voice, occasional mumbling. States that there is "someone in the unit who is pretending to be a doctor dispensing illegal drugs." Denies pain and discomfort. Denies SOB/ dyspnea. Denies chest pain, palpitations, headaches, dizziness. Denies fevers, chills, n/v/d. Denies dysuria. As per nursing, patient is calm today. 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 Otherwise, no acute medical issues overnight. Review of Systems other (denies in HPI, but confuse and unreliable) PMFSH - History History Provided By: Patient - Medical / Surgical Hx Neg / Unobtainable Surgical History: No Previous Surgery - Medical History Medical History: Medical History (Last Reviewed 05/05/18 @ 15:51 by MARTA Bates) Anxiety Back pain Dementia Enlarged prostate HTN (hypertension) Hyperlipidemia Peripheral vascular disease Spinal injury Surgical history unknown - Family History Family History: Family History (Last Reviewed 05/05/18 @ 15:51 by MARTA Bates) Other Family history unobtainable due to patient's condition - Social History I have reviewed the patient's Social History: Yes - Tobacco History Second Hand Smoke Exposure: No Smoking Status: Never smoker - Alcohol History How Often Do You Have a Drink Containing Alcohol: Never - Substance Use History Substance History: Unable to Obtain - Travel History History of Recent Travel: No Recent Travel in the [place] Within the Last 8 Weeks: No Recent Travel Out of the Country Within the Last 8 Weeks: No - Immunization History Tetanus Immunization: Unable to Assess Hx Influenza Vaccine This Season: No Medications and Allergies Active Medications: Active Medications Amlodipine Besylate (Norvasc) 2.5 mg PO DAILY [facility] Last Admin: 05/05/18 08:56 Dose: 2.5 mg Atenolol (Tenormin) 50 mg PO DAILY [facility] Last Admin: 05/05/18 08:56 Dose: 50 mg Diphenhydramine HCl (Benadryl) 25 mg PO HS PRN PRN Reason: INSOMNIA Last Admin: 05/04/18 20:16 Dose: 25 mg Gabapentin (Neurontin) 100 mg PO DAILY [facility] Last Admin: 05/05/18 08:56 Dose: 100 mg Lorazepam (Ativan) 0.5 mg PO Q12H PRN PRN Reason: ANXIETY Quetiapine Fumarate (Seroquel) 25 mg PO BID [facility] Last Admin: 05/05/18 08:56 Dose: 25 mg Allergies Allergy/AdvReac Type Severity Reaction Status Date / Time No Known Allergies Allergy Uncoded 07/01/12 15:36 Home Medications Medication Instructions Recorded Confirmed Type acetaminophen-codeine 1 tab PO Q6H PRN 04/30/18 04/30/18 History [Tylenol-Codeine #3] atenolol 25 mg PO DAILY 04/30/18 05/01/18 History ferrous sulfate 04/30/18 History gabapentin 100 mg PO DAILY 04/30/18 05/01/18 History amlodipine [Norvasc] 2.5 mg PO DAILY 05/01/18 05/01/18 History trazodone 05/01/18 05/01/18 History Physical Exam Vital signs: Vital Signs 05/04/18 17:59 05/04/18 18:31 05/05/18 05:29 Temperature 98.1 F Pulse Rate 111 H 106 H 102 H Respiratory Rate 18 Blood Pressure 171/90 H 186/97 H 147/84 H Pulse Oximetry 97 96 Intake & Output 05/04/18 05/05/18 05/05/18 18:59 06:59 18:59 Intake Total 480 / 480 960 / 960 Balance 480 / 480 960 / 960 Intake: Oral 480 / 480 960 / 960 Other: # Voids 2 Narrative: GENERAL: This is a thin appearing, elderly, well-developed patient, in no apparent distress. SKIN: Warm and dry. HEENT: Normocephalic. Pupils equal round and reactive. Nose without bleeding. Airway patent. NECK: Trachea midline. CARDIOVASCULAR: Regular rate and rhythm without murmurs, gallops, or rubs. RESPIRATORY: Clear to auscultation. Breath sounds equal bilaterally. No wheezes , rales, or rhonchi. GASTROINTESTINAL: Abdomen soft, non-tender, nondistended. Bowel Sounds normoactive x4. MUSCULOSKELETAL: Extremities without clubbing, cyanosis, or edema. NEUROLOGICAL: Awake and alert. Confuse. Moves all extremities. Normal speech. Assessment and Plan - Plan 72-year-old male who presented to the emergency department today for evaluation of altered mental status and a syncopal episode. Alzheimer's dementia with behavioral disturbances Homicidal ideation -Managed by psychiatry team Syncopal episodes, probably secondary to vasovagal versus sleeping while in [place] no further episodes since admission -EKG with no changes from previous -Head CT remote right basal ganglial lacunar infarct, senescent changes mild to moderate periventricular ischemic white matter demyelination, no acute abnormality -EEG negative, UA negative -Carotid doppler shows <50% stenosis right carotid artery -Start on ASA and statin daily -No syncopal episode Hypertension by history -Restart amlodipine 5mg daily -Continue on atenolol 50 mg p.o. daily -monitor BP and adjust treatment accordingly Neuropathy -continue on gabapentin 100 mg p.o. daily LUCY on ?CKD -Creatinine 1.36 -baseline unknown, last Cr in the system was 0.95 [id number] -UA neg -Patient on Lisinopril 40mg daily at home, continue to hold -avoid nephrotoxins. Encourage p.o. fluid intake -repeat BMP to monitor trend Probable osteoarthritis -will hold the meloxicam 2/2 renal insufficiency Chronic back pain -chronically on acetaminophen/codeine 1 p.o. every 6 hours, continue DVT prophylaxis SCD/ELLEN navarro Code Status: Full code Discussed Condition With: Patient, nursing Discharge Planning: DC disposition by primary team
--- NOTE | 2018-05-05 16:31 | ECG ---
Date Performed: 05/04/2018 Time Performed: 18:52:47 PTAGE: 72 years EKG: Sinus rhythm LOW QRS VOLTAGE IN EXTREMITY LEADS SEPTAL MYOCARDIAL INFARCTION , OF INDETERMINATE AGE ABNORMAL ECG PREVIOUS TRACING : 04/30/2018 20.45 Since the previous tracing, no significant change noted DOCTOR: Trish Sandra Interpretating Date/Time 05/05/2018 16:29:43
[2018-05-06] MEDS: Gabapentin 100 MG Capsule PO SCH (08:27)
[2018-05-06] MEDS: Ferrous Sulfate 325 MG Tablet PO SCH (08:27)
[2018-05-06] MEDS: QUEtiapine 25 MG Tablet PO SCH ×2 (08:27→20:29)
[2018-05-06] MEDS: Atenolol 50 MG Tablet PO SCH (08:27)
[2018-05-06] MEDS: amLODIPine 5 MG Tablet PO SCH (08:27)
[2018-05-06 15:58] LABS: Baso # (Auto) 0.1 th/mm3 (0.0-0.2); Baso % (Auto) 0.9 % (0.0-2.0); Eos # (Auto) 0.2 th/mm3 (0.0-0.4); Eos % (Auto) 2.1 % (0.0-4.0); Hematocrit 39.9 % (39.0-51.0); Hemoglobin 13.4 gm/dL (13.0-17.0); Lymph # (Auto) 1.3 th/mm3 (1.0-4.8); Lymph % (Auto) 16.7 % (9.0-44.0); Mean Corpuscular HGB Conc 33.6 % (32.0-36.0); Mean Corpuscular Hemoglobin 32.6 pg (27.0-34.0); Mono # (Auto) 0.7 th/mm3 (0.0-0.9); Mono % (Auto) 8.5 % (0.0-8.0); Neut # (Auto) 5.5 th/mm3 (1.8-7.7); Neut % (Auto) 71.8 % (16.0-70.0); Platelet Count 214 th/mm3 (150-450); Red Blood Count 4.11 mil/mm3 (4.50-5.90); Red Cell Distribution Width 13.4 % (11.6-17.2); White Blood Count 7.7 th/mm3 (4.0-11.0)
[2018-05-06 16:13] LABS: Albumin 3.2 g/dL (3.4-5.0); Anion Gap 9 meq/L (5-15); Aspartate Aminotransferase 22 U/L (15-37); Blood Urea Nitrogen 28 mg/dL (7-18); Calcium 9.2 mg/dL (8.5-10.1); Carbon Dioxide 24.8 meq/L (21.0-32.0); Chloride 106 meq/L (98-107); Glomerular Filtration Rate 64 mL/min (>89); Glucose,Random 119 mg/dL (74-106); Potassium 3.9 meq/L (3.5-5.1); Sodium 140 meq/L (136-145)
[2018-05-06 16:14] LABS: Alanine Aminotransferase 19 U/L (12-78)
[2018-05-06 16:16] LABS: Alkaline Phosphatase 59 U/L (45-117)
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
[2018-05-06] MEDS ORDERED: Haloperidol Inj 5 MG/ML Ampul IM SCH (21:00)
[2018-05-07] MEDS: Ferrous Sulfate 325 MG Tablet PO SCH ×2 (09:08→15:52)
[2018-05-07] MEDS: Gabapentin 100 MG Capsule PO SCH ×2 (09:09→15:52)
[2018-05-07] MEDS: amLODIPine 5 MG Tablet PO SCH ×2 (09:09→15:52)
[2018-05-07] MEDS: Atenolol 50 MG Tablet PO SCH ×2 (09:09→15:52)
[2018-05-07] MEDS: QUEtiapine 25 MG Tablet PO SCH ×3 (09:09→20:53)
--- NOTE | 2018-05-07 12:29 | P.DIET ---
Nutritional Evaluation Type of nutrition evaluation: initial Nutrition screening: [facility] (Poor PO Intake 05/06) Subjective Subjective Comments: PO intake for 05/06: B-75%, L-refused, D-100% Objective - Diagnosis Dementia with behavioral disturbance - Objective Body Mass Index: 19.8 % IBW: 84 (IBW = 154#) Body Weight Used for Calculations: Actual (59 kg) Energy Needs - Lower Range (kCal/kg): 30 Energy Needs - Upper Range (kCal/kg): 35 Lower Limit kCal/kg (kCals): 1,770 Upper Limit kCal/kg (kCals): 2,065 Lower Limit Protein Factor (Grams per Kg): 1.2 Upper Limit Protein Factor (Grams per Kg): 1.5 Lower Protein Needs (Protein): 71 Upper Protein Needs (Protein): 89 Fluid Factor (ml/kg): 35 Estimated Fluid Needs (ml): 2,065 Dietitian Reviewed in Medical Record: Current diet, Curent medications, Intake & Output, Labs, Medical history Diet Order: Regular Assessment Assessment: Pt came into the ED with AMS and syncopal episode. He is at high nutrition risk 2' to dx, low wt for ht with a BMI of 19.8 and poor po intake. Will send Ensure Enlive on trays for added nutrition. Each 8 oz serving provides 350 kcals and [address]. Recommendations: 1. Continue current diet 2. Ensure Enlive tid 3. Please order MVI/min q day Dietitian to Monitor: Lab values, Supplement acceptance, Intake & Output, Diet tolerance, Weight change, PO Intake, Medical course
--- NOTE | 2018-05-07 13:27 | P.TTN ---
- Patient Problems Problems: 1. Discharge planning 2. Medication compliance 3. Knowledge deficit 4. Lack of coping skills - Progress Toward Goals Provider Present: Dr. Layne Montoya, Dr. Timo Ryan Provider Input: Going to [facility] on . Remain for further stabilization. Homocidal Ideations. Nurse(s) Present: Elsie Nurse Input: Inappropiate towards staff. Non-Compliant with Meds. Refusing to eat. Psychiatric Counselors Present: Jhonatan Price Jr., [facility], Other (Janet Sykes) Psychiatric Therapist Input: Will plan a safe discharge when the Patient is stable. Group Spec/RT/OT/VAZQUEZ Present: KAROLINA Toure Group Spec/RT/OT/VAZQUEZ Input: Pt refused to attend the group activities although encouraged. - Documentation Teaching Recipient: Patient
--- NOTE | 2018-05-07 16:46 | P.PNPSY ---
Subjective Remarks: Patient seen for follow up; chart reviewed. Discussion with nursing staff reported that patient had to be belligerent and refused medications this morning. Patient was found lying hospital bed noted to be guarded, but cooperative with interview. Patient states that he is feeling "good" denying any physical complaints at this time. Patient state he is ambulating well, reports his mood as being "good", denying noticing having any more irritability.. Patient continues with homicidal ideations toward caregivers has been. Patient was encouraged to ambulate on the unit 10 to be less isolative which she acknowledged. Patient was able to be directed out into the day room to have a snack this patient refused breakfast this morning but did eat some lunch. Patient after interview had agreed to comply with medications which she took. Patient continues with baseline confusion and delusions. Review of Systems All other systems reviewed negative except as stated in HPI Mental Status Examination Appearance: Appropriate Consciousness: Alert Orientation: Person, Place Motor Activity: Normal gait Speech: Unremarkable Language: Adequate Fund of Knowledge: Poor Attention and Concentration: Inadequate Memory: Impaired Mood: Appropriate Affect: Blunt Thought Process & Associations: Loose associations Thought Content: Preoccupations, Delusional Hallucination Type: None Delusion Type: Bizarre, Paranoid Suicidal Ideation: No Suicidal Plan: No Suicidal Intention: No Homicidal Ideation: Yes Homicidal Plan: No Homicidal Intention: No Insight: Poor Judgment: Poor Assessment and Plan - Assessment (1) Unspecified psychosis Code(s): F29 - Unspecified psychosis not due to a substance or known physiological condition Status: Acute - Plan Plan: Patient continues with baseline confusion as well as delusions of caregivers has been having related to caregiver's daughter and continues with homicidal ideations. Patient encouraged to comply with treatment. Patient will require continued encouragement to participate in groups and activities as well as to improve nutritional intake. Continues encouraged to comply with medications. Patient will present to mental health court tomorrow for petition for involuntary hospitalization. Discharge planning in progress. Justification for Continued Inpatient Stay: At risk of further decompensation a lower level of care.
[2018-05-07] MEDS ORDERED: QUEtiapine 25 MG Tablet PO SCH (21:54)
[2018-05-08] MEDS: Atenolol 50 MG Tablet PO SCH (10:13)
[2018-05-08] MEDS: Ferrous Sulfate 325 MG Tablet PO SCH (10:15)
[2018-05-08] MEDS: Gabapentin 100 MG Capsule PO SCH (10:17)
[2018-05-08] MEDS: amLODIPine 5 MG Tablet PO SCH (10:17)
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
[2018-05-08] MEDS: QUEtiapine 25 MG Tablet PO SCH (20:29)
[2018-05-09] MEDS: Ferrous Sulfate 325 MG Tablet PO SCH (09:08)
[2018-05-09] MEDS: amLODIPine 5 MG Tablet PO SCH (09:09)
[2018-05-09] MEDS: QUEtiapine 25 MG Tablet PO SCH ×2 (09:09→21:15)
[2018-05-09] MEDS: Atenolol 50 MG Tablet PO SCH (09:09)
[2018-05-09] MEDS: Gabapentin 100 MG Capsule PO SCH (09:10)
--- NOTE | 2018-05-09 16:38 | P.PNPSY ---
Subjective Remarks: Patient seen for follow up; chart reviewed. Discussion with nursing staff reported that patient tried to refuse but did comply with encouragement. Patient found lying on hospital bed, noted to be in good spirits, smiling at times. Patient reports eating and drinking well, noted with better affect, denies depressed mood, mood has been "good". He is noted with baseline confusion Patient given recommendation of being discharged to a residential facility which he did not express any opposition to at this time nor did he endorse any homicidal ideation today. He was encouraged to continue medications which he acknowledged. Treatment team met with patient's power of movie producer and her 's discussion of planning patient to be referred to a nursing facility was reviewed which they agreed. Review of Systems All other systems reviewed negative except as stated in HPI Mental Status Examination Appearance: Appropriate Consciousness: Alert Orientation: Person, Place Motor Activity: Normal gait Speech: Unremarkable Language: Adequate Fund of Knowledge: Poor Attention and Concentration: Inadequate Memory: Impaired Mood: Appropriate Affect: Blunt Thought Process & Associations: Loose associations Thought Content: Preoccupations, Delusional Hallucination Type: None Delusion Type: Bizarre, Paranoid Suicidal Ideation: No Suicidal Plan: No Suicidal Intention: No Homicidal Ideation: Yes (lessening) Homicidal Plan: No Homicidal Intention: No Insight: Poor Judgment: Poor Assessment and Plan - Assessment (1) Unspecified psychosis Code(s): F29 - Unspecified psychosis not due to a substance or known physiological condition Status: Acute - Plan Plan: Patient this time noted with brighter affect, more responsive to interview although continues to have some reluctance with compliance is able to take medications with encouragement. Patient also noted with lessening of homicidal ideations that he did not expresses today. We will continue current treatment. We will continue to monitor mood and behavior. Treatment team will look into referring patient to a nursing facility. Discharge planning a progress. Justification for Continued Inpatient Stay: At risk of further decompensation a lower level of care.
[2018-05-10] MEDS: amLODIPine 5 MG Tablet PO SCH (09:35)
[2018-05-10] MEDS: Gabapentin 100 MG Capsule PO SCH (09:35)
[2018-05-10] MEDS: Atenolol 50 MG Tablet PO SCH (09:35)
[2018-05-10] MEDS: QUEtiapine 25 MG Tablet PO SCH ×2 (09:36→21:22)
[2018-05-10] MEDS: Ferrous Sulfate 325 MG Tablet PO SCH (09:36)
--- NOTE | 2018-05-10 12:36 | P.PNPSY ---
Subjective Remarks: Reviewed electronic medical records and discussed case with staff. Follow-up was conducted in the patient's room with VIRGINIA Santos present. His nurse advises that the staff from last night reported the patient was telling him that he was a bench scientist. He is found lying on the bed awake. He states that he slept well his appetite is been good. He reports having a good mood. However, when asked why he is at the hospital he refers to his left arm and starts pointing at it. He also believes it is 2008. When asked his location he states "I am right here". He remains grossly confused. Mental Status Examination Appearance: Appropriate Consciousness: Alert Orientation: Person, Place Motor Activity: Normal gait Speech: Unremarkable Language: Adequate Fund of Knowledge: Poor Attention and Concentration: Inadequate Memory: Impaired Mood: Appropriate Affect: Blunt Thought Process & Associations: Loose associations Thought Content: Preoccupations, Delusional Hallucination Type: None Delusion Type: Bizarre, Paranoid Suicidal Ideation: No Suicidal Plan: No Suicidal Intention: No Homicidal Ideation: Yes (lessening) Homicidal Plan: No Homicidal Intention: No Insight: Poor Judgment: Poor Assessment and Plan - Assessment (1) Unspecified psychosis Code(s): F29 - Unspecified psychosis not due to a substance or known physiological condition Status: Acute - Plan Plan: Patient will be reevaluated Saturday by the attending psychiatrist. Continue with current treatment plan. Justification for Continued Inpatient Stay: Moving this patient to a less restrictive environment would likely result in decompensation.
[2018-05-11] MEDS: Gabapentin 100 MG Capsule PO SCH (10:55)
[2018-05-11] MEDS: Ferrous Sulfate 325 MG Tablet PO SCH (10:55)
[2018-05-11] MEDS: amLODIPine 5 MG Tablet PO SCH (10:55)
[2018-05-11] MEDS: QUEtiapine 25 MG Tablet PO SCH ×2 (10:55→22:21)
[2018-05-11] MEDS: Atenolol 50 MG Tablet PO SCH (10:55)
--- NOTE | 2018-05-11 11:29 | P.PNPSY ---
Subjective Remarks: Reviewed electronic medical records and discussed case with staff. Follow-up was conducted in patient's room. He was found lying on his bed awake. His nurse reports that he refused his medications this morning. He continues to remain fairly seclusive to his room. He states that he slept well his appetite' s been good. When asked how he feels he states, "I am all right, I have no problems at all". He shows no insight into why he is here. Mental Status Examination Appearance: Appropriate Consciousness: Alert Orientation: Person, Place Motor Activity: Normal gait Speech: Unremarkable Language: Adequate Fund of Knowledge: Poor Attention and Concentration: Inadequate Memory: Impaired Mood: Appropriate Affect: Blunt Thought Process & Associations: Loose associations Thought Content: Preoccupations, Delusional Hallucination Type: None Delusion Type: Bizarre, Paranoid Suicidal Ideation: No Suicidal Plan: No Suicidal Intention: No Homicidal Ideation: Yes (lessening) Homicidal Plan: No Homicidal Intention: No Insight: Poor Judgment: Poor Assessment and Plan - Assessment (1) Unspecified psychosis Code(s): F29 - Unspecified psychosis not due to a substance or known physiological condition Status: Acute - Plan Plan: Patient will be reevaluated Saturday by the attending psychiatrist. Continue with current treatment plan. Justification for Continued Inpatient Stay: Moving this patient to a less restrictive environment would likely result in decompensation.
[2018-05-12 06:09] VITALS: TEMP 97.8
[2018-05-12] MEDS: amLODIPine 5 MG Tablet PO SCH (09:21)
[2018-05-12] MEDS: Gabapentin 100 MG Capsule PO SCH (09:22)
[2018-05-12] MEDS: Ferrous Sulfate 325 MG Tablet PO SCH (09:22)
[2018-05-12] MEDS: Atenolol 50 MG Tablet PO SCH (09:22)
[2018-05-12] MEDS: QUEtiapine 25 MG Tablet PO SCH ×2 (09:22→20:25)
--- NOTE | 2018-05-12 15:03 | P.TTN ---
- Patient Problems Problems: 1. Discharge planning 2. Medication compliance 3. Knowledge deficit 4. Lack of coping skills - Progress Toward Goals Provider Present: Dr. Layne Montoya, Dr. Timo Ryan (May 12, 2018 Dr. Ryan is titrating medications, patient needs to remain for further stabilization.) Provider Input: Going to [facility] [address] on . Remain for further stabilization. Homocidal Ideations. Nurse(s) Present: Pat Nurse Input: Inappropiate towards staff. Non-Compliant with Meds. Refusing to eat. Psychiatric Counselors Present: Jhonatan Price Jr., [facility] (May 12, 2018 the patient's girlfriend is helping with discharge, the patient is likely to go to [facility] tomorrow May 13, 2018.), Other (Janet Sykes) Psychiatric Therapist Input: Will plan a safe discharge when the Patient is stable. Group Spec/RT/OT/VAZQUEZ Present: KAROLINA Toure, TAYLOR Ng ( May 12, 2018 patient attends select groups.) Group Spec/RT/OT/VAZQUEZ Input: Pt refused to attend the group activities although encouraged. - Documentation Teaching Recipient: Patient
--- NOTE | 2018-05-12 16:55 | P.PNPSY ---
Subjective Remarks: Patient seen for follow-up, chart reviewed. Discussion with nursing staff reported that patient compliant with medications continue to be seclusive to her room and off her meals but has not expressed homicidal ideation. Patient was found lying hospital bed noted to be, cooperative; noted to be slightly more engaging interview without any irritability noted. Patient states that he is feeling "good" reports eating and drinking well and having been off her meals and states that he has been bored but was encouraged to participate in group which she acknowledged and agreed. Patient did not mention any house ideations further until asked specifically about caretakers significant other and then again and resume with the delusion that patient's waitress's significant other had great caretakers daughter. 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 Patient has a compliant with treatment and agrees to continue same. Review of Systems All other systems reviewed negative except as stated in HPI Mental Status Examination Appearance: Appropriate Consciousness: Alert Orientation: Person, Place Motor Activity: Normal gait Speech: Unremarkable Language: Adequate Fund of Knowledge: Poor Attention and Concentration: Inadequate Memory: Impaired Mood: Appropriate Affect: Blunt Thought Process & Associations: Loose associations Thought Content: Preoccupations, Delusional Hallucination Type: None Delusion Type: Bizarre, Paranoid Suicidal Ideation: No Suicidal Plan: No Suicidal Intention: No Homicidal Ideation: Yes (lessening) Homicidal Plan: No Homicidal Intention: No Insight: Poor Judgment: Poor Assessment and Plan - Assessment (1) Unspecified psychosis Code(s): F29 - Unspecified psychosis not due to a substance or known physiological condition Status: Acute - Plan Plan: Patient continues to have lessening of delusion but continues to be present if asked specifically but no longer perseverative on this. Patient has a compliant with treatment although continues to be seclusive to her room mostly has been off her meals. We will continue current treatment. Continue monitor mood and behavior. Patient was discharged tomorrow to residential facility. Justification for Continued Inpatient Stay: At risk of further decompensation at lower level care.
[2018-05-12 18:19] VITALS: O2SAT 94
[2018-05-13 06:03] VITALS: BP 144/73; PULSE 65; RESP 15
[2018-05-13] MEDS: QUEtiapine 25 MG Tablet PO SCH (09:09)
[2018-05-13] MEDS: Atenolol 50 MG Tablet PO SCH (09:09)
[2018-05-13] MEDS: amLODIPine 5 MG Tablet PO SCH (09:09)
[2018-05-13] MEDS: Gabapentin 100 MG Capsule PO SCH (09:10)
[2018-05-13] MEDS: Ferrous Sulfate 325 MG Tablet PO SCH (09:10)
--- NOTE | 2018-05-13 21:06 | P.DSPSY ---
Psychiatry Discharge Summary Inpatient Psychiatric care?: Yes Advance Directives: Yes Mental Health Advance Directive: No Health Care Proxy: No - Admission Admission Date: May 01, 2018 15:17 - Admission Diagnosis (1) Unspecified psychosis Code(s): F29 - Unspecified psychosis not due to a substance or known physiological condition Brief History: Late entry, patient seen May 01, 2018 at 08:30 AM The patient is a 72-year-old man, domiciled alone in [place], he has a caregiver, single, no family, , service connected, with a psychiatric history of dementia, one psychiatric hospitalization in 2012 here in [place], 1 remote suicide attempt, he is noted psychotropics at the moment, medical history of BPH, hypertension, who presents to the emergency department for evaluation of altered mental status and a syncopal episode. Patient was at [facility] with his caregiver, he was sitting in a chair when he slumped over and was reportedly unresponsive for 3-5 minutes. There was no head injury or fall. EMS was activated and on scene patient aroused spontaneously, he was initially hypotensive for fire rescue but has been normotensive for EMS. Patient has no complaints, H&P is limited due to patient' s mentation. He has a history of Alzheimer's dementia. When asked any questions patient responds with "it is none of your [employer] business". Patient has been making homicidal statements. 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 Past medical history is significant for hypertension, BPH. Patient is not on any medications for the Alzheimer's. Patient currently lives alone, but has friends who cook for him and check on him several times a day. Patient has been in observation in the ER with acute kidney injury. His creatinine is 01.36. Consulted to psychiatry due to erratic behavior. Chart was reviewed. The case was widely discussed with primary medical team. On my psychiatric evaluation I find a patient that is walking in the busch, he is very confused, completely disoriented, making several confabulatory statements. He is visibly paranoid. Stated that "I am here because Dr. Tello is an impostor, he has my papers and he has my money". He says that his academic program specialist is already informed "my academic program specialist is already contacting the authorities, I want my doctor back right now". The patient is disoriented in place, he does not know where he is. He says that he is in [place]. Partially oriented in time, he knows it is April 2018. He cannot tell me the reason he is here. He reports feeling okay, denies pain, denies depressive symptoms, he seems to be upset, internally preoccupied. As per nurse in charge the patient has been walking around, talking to himself, verbally hostile, stating that a person which name is Nelson wants to kill him. PPHx: History of dementia, previous psychiatric hospitalization, one hospitalization here in 2011, he is noted psychotropics, PMHx: BPH, hypertension Family Hx: No family psychiatric history Substance Hx: The patient denies the use of illegal drugs or alcohol Social Hx: The patient was born and raised in [place], he losing [place] along, he has a caregiver who is also his power of district attorney, single, unemployed , , service connected, highest level of education is some college Collateral information from [place], [phone], was obtained, she is here caregiver also her power of district attorney. She confirms that the patient is here because he had an episode of syncopal in the discharge. But at the same moment she says that she has been very concerned about the patient increased paranoia and disorganization. She said that she has being [facility] the patient has being more agitated, at times verbally hostile, talking about people following him. She also clarifies that the patient has history of dementia. He has no family support. His family is not in contact with him. 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 Tobacco Use In Past 30 Days: No How Often Do You Have a Drink Containing Alcohol: Never Hospital Course: The patient is a 72-year-old man, domiciled alone in [place], he has a caregiver, single, no family, , service connected, with a psychiatric history of dementia, one psychiatric hospitalization in 2011 here in [place], 1 remote suicide attempt, he is noted psychotropics at the moment, medical history of BPH, hypertension, who presents to the emergency department for evaluation of altered mental status and a syncopal episode. Patient was admitted to a locked, inpatient psychiatric unit. Appropriate precautions were in place throughout patient's hospital stay. Patient was seen and examined on the unit by psychiatry. Psychotropic medications were adjusted. Patient was observed to have confusion at baseline secondary to neurocognitive deficits. Patient was noted to have poor immediate and recent recall, alert and oriented to person and place but not to time or situation. Patient was noted to have less perseveration on delusions but was still present directly asked. Patient was noted to have reached stable mood, noted to participate and engage in treatment and interact with staff adequately. Patient agreed to continue treatment and outpatient follow-up appointments for continuity of care. Patient will be transferred and admitted to medical problems as arranged by family and counselor. Counselor has arranged discharge plan. On the day of discharge: Patient seen and examined; chart reviewed. Case discussed with nurse and counselor. No behavioral issues overnight. On my examination today, the patient denies any perceptional disturbances and had remaining delusional material verbalized today. Patient denies any side effects from medication regimen, no physical complaints. Suicide and violence risk assessment on day of discharge both suggest lower imminent risk, and the patient's level of function is adequate for plan level of outpatient care. Patient has maximized benefit from this inpatient psychiatric hospital stay and will be discharged with discharge plan as arranged by counselor. Patient advised to return to psychiatric emergency room for any concerning psychiatric symptoms. Patient agrees with plan. - Discharge Discharge Date: 05/13/18 - Discharge Diagnosis (1) Unspecified psychosis Code(s): F29 - Unspecified psychosis not due to a substance or known physiological condition Status: Acute (2) Dementia Code(s): F03.90 - Unspecified dementia without behavioral disturbance Status: Acute Discharge Disposition: Home - Discharge Instructions Discharge Diet: Heart Healthy Diet Activities You Can Perform: Weight Bearing As Tolerat - Discharge Time > 30 minutes Mental Status Examination Appearance: Appropriate Consciousness: Alert Orientation: Person, Place Motor Activity: Normal gait Speech: Unremarkable Language: Adequate Fund of Knowledge: Poor Attention and Concentration: Inadequate Memory: Impaired Mood: Appropriate Affect: Blunt Thought Process & Associations: Other ([place]) Thought Content: Delusional Hallucination Type: None Delusion Type: Bizarre, Paranoid (Minimal) Suicidal Ideation: No Suicidal Plan: No Suicidal Intention: No Homicidal Ideation: Yes (Minimal) Homicidal Plan: No Homicidal Intention: No Insight: Poor Judgment: Poor Discharge/Advance Care Plan - Results Vital Signs: Last Vital Signs Temp 97.8 F 05/13/18 06:00 Pulse 65 05/13/18 06:00 Resp 15 05/13/18 06:00 BP 144/73 H 05/13/18 06:00 Pulse Ox 94 L 05/13/18 06:00 Lab Results: wnl Summary of Procedures: None Pending Results: None - Medications Number of antipsychotic medications at discharge: 1 - Discharge Care Plan Goals to Promote Your Health: * To prevent worsening of your condition and complications * To maintain your health at the optimal level Directions to Meet Your Goals: Take your medications as prescribed Follow your dietary instruction Follow activity as directed Keep your appointments as scheduled Take your immunizations and boosters as scheduled If your symptoms worsen call your PCP, if no PCP go to Urgent Care Center or Emergency Room For 25/02 questions related to your inpatient stay or results of tests pending at discharge, please contact Dr. Fernando Ryan MD at Smoking is Dangerous to Your Health. Avoid second hand smoking
== END 2018-05-13 12:10 ==
LOC: H250 15:17
PROVIDERS: ADMIT Student in an Organized Health Care Education/Training Program; ATTEND Student in an Organized Health Care Education/Training Program